=== PATIENT | female | born 1935 | race Hispanic/Latino ===

== ENCOUNTER 2017-08-14 18:49 | Emergency (ER) | payer OTHER ==
[2017-08-14] MEDS ORDERED: LIDOCAINE 1% MPF 5 ML VIAL ONE (19:24)
--- NOTE | 2017-08-14 20:15 | ER ---
Nurse's Notes [facility] Name: Rk Ram Age: 82 yrs Sex: Female : 1935 Arrival Date: 08/14/2017 Time: 18:52 Bed 15 Private MD: out of town, doctor Diagnosis: Laceration without foreign body of left index finger without damage to nail Presentation: 08/14 19:02 Presenting complaint: Patient states: Lacerated left index finger yesterday evening aj with kitchen knife while slicing ham. Transition of care: patient was not received from another setting of care. Onset of symptoms was August 13, 2017. Risk Assessment: Do you want to hurt yourself or someone else? Patient reports no desire to harm self or others. Initial Sepsis Screen: Does the patient meet any 2 criteria? No. Patient's initial sepsis screen is negative. Does the patient have a suspected source of infection? No. Patient's initial sepsis screen is negative. Care prior to arrival: None. 19:02 Method Of Arrival: Ambulatory aj 19:02 Acuity: BRENT 5 aj Triage Assessment: 19:06 General: Appears in no apparent distress. comfortable, Behavior is calm, cooperative, aj appropriate for age. Pain: Complains of pain in palmar aspect of middle phalanx of left index finger. Neuro: Level of Consciousness is awake, alert, obeys commands, Oriented to person, place, time, situation, Appropriate for age. Respiratory: Airway is patent Respiratory effort is even, unlabored, Respiratory pattern is regular, symmetrical. Derm: Skin is intact, is healthy with good turgor, Skin is pink, warm \T\ dry. normal. Injury Description: Laceration sustained to palmar aspect of middle phalanx of left index finger. Historical: - Allergies: 19:06 No Known Allergies; aj - Home Meds: 19:06 Humalog Sub-Q [Active]; Trujeo [Active]; Boniva 150 mg oral tab 1 tab once moly aj [Active]; Voltaren Oral [Active]; mirtazapine 15 mg Oral TbDL 1 tab once daily [Active]; amlodipine 5 mg tab 1 tab once daily [Active]; atorvastatin 40 mg oral tab 1 tab once daily [Active]; labetalol 200 mg Oral tab 1 tab 2 times per day [Active]; pantoprazole 40 mg oral TbEC 1 tab once daily [Active]; spironolactone 25 mg Oral tab 1 tab once daily [Active]; levothyroxine 50 mcg tab 1 tab once daily [Active]; - PMHx: 19:06 Hyperlipidemia; Diabetes - IDDM; Hypothyroidism; GERD; aj - Immunization history:: Adult Immunizations up to date, Last tetanus immunization: unknown. - Social history:: Smoking status: Patient/guardian denies using tobacco. - Ebola Screening: : Patient negative for fever greater than or equal to 101.5 degrees Fahrenheit, and additional compatible Ebola Virus Disease symptoms Patient denies exposure to infectious person Patient denies travel to an Ebola-affected area in the 21 days before illness onset No symptoms or risks identified at this time. Screenin:46 Abuse screen: Denies threats or abuse. Nutritional screening: No deficits noted. ea Tuberculosis screening: No symptoms or risk factors identified. Fall Risk None identified. Assessment: 19:43 General: Appears in no apparent distress. Behavior is calm, cooperative, appropriate ea for age. Pain: Complains of pain in palmar aspect of middle phalanx of left index finger Pain currently is 7 out of 10 on a pain scale. Quality of pain is described as aching. Neuro: Level of Consciousness is awake, alert, obeys commands, Oriented to person, place, time, situation. Cardiovascular: Patient's skin is warm and dry. Respiratory: Airway is patent Respiratory effort is even, unlabored, Respiratory pattern is regular, symmetrical. GI: No signs and/or symptoms were reported involving the gastrointestinal system. : No signs and/or symptoms were reported regarding the genitourinary system. EENT: No signs and/or symptoms were reported regarding the EENT system. Derm: Skin is pink, warm \T\ dry. Musculoskeletal: Circulation, motion, and sensation intact. Injury Description: Laceration sustained to palmar aspect of middle phalanx of left index finger is clean, was sustained 1 day ago. no active bleeding noted at this time. 20:54 Reassessment: Patient and/or family updated on plan of care and expected duration. Pain ea level reassessed. Patient is alert, oriented x 3, equal unlabored respirations, skin warm/dry/pink. Discharge instructions given to patient, verbalized the understanding of instruction. Vital Signs: 19:06 BP 149 / 50; Pulse 62; Resp 20; Temp 97.4; Pulse Ox 95% on R/A; Weight 58.97 kg; Height aj 5 ft. 1 in. (154.94 cm); 20:45 BP 138 / 50; Pulse 70; Resp 18; Temp 98(O); Pulse Ox 99% on R/A; Pain 0/10; ea 19:06 Body Mass Index 24.56 (58.97 kg, 154.94 cm) ED Course: 18:52 Patient arrived in ED. mr 18:52 out of town, doctor is Private Physician. mr 19:04 Triage completed. aj 19:06 Arm band placed on right wrist. Patient placed in an exam room. aj 19:09 Kb Santiago PA is PHCP. jr8 19:09 Son Vasquez MD is Attending Physician. jr8 19:43 Melina Gross RN is Primary Nurse. ea 19:45 Patient has correct armband on for positive identification. Bed in low position. Call ea light in reach. Side rails up X2. 20:53 No provider procedures requiring assistance completed. Patient did not have IV access ea during this emergency room visit. Administered Medications: 20:00 Drug: Lidocaine (1 %) 1 vials Volume: 5 ml; Route: Infiltration; ea 20:16 Drug: Tetanus-Diphtheria Toxoid Adult 0.5 ml {Research Fellow: [employer]. Exp: ea 06/19/2019. Lot #: [id number]. } Route: IM; Site: left deltoid; 20:54 Follow up: Response: No adverse reaction ea Outcome: 20:15 Discharge ordered by . [facility] 20:53 Discharged to home ambulatory, with family. ea 20:53 Condition: improved 20:53 Discharge instructions given to patient, Instructed on discharge instructions, follow up and referral plans. medication usage, Demonstrated understanding of instructions, follow-up care, medications, Prescriptions given X 1. 21:02 Patient left the ED. ea Signatures: Brittney Luna, Libby Topete RN mr Kb Santiago PA PA jrMelina Trujillo RN RN ea
--- NOTE | 2017-08-14 20:16 | EDPHYS ---
Physician Documentation [facility] Name: Rk Ram Age: 82 yrs Sex: Female : 1935 Arrival Date: 08/14/2017 Time: 18:52 Bed 15 Private MD: out of town, doctor ED Physician Son Vasquez HPI: 08/14 19:22 This 82 yrs old Female presents to ER via Ambulatory with complaints of Finger jr8 Laceration. 19:22 Onset: The symptoms/episode began/occurred acutely, yesterday. Associated signs and jr8 symptoms: The patient has no apparent associated signs or symptoms. The patient has not experienced similar symptoms in the past. The patient has not recently seen a physician. Was cutting with a knife and accidently lacerated finger yesterday . Historical: - Allergies: 19: No Known Allergies; aj - Home Meds: : Humalog Sub-Q [Active]; Trujeo [Active]; Boniva 150 mg oral tab 1 tab once moly aj [Active]; Voltaren Oral [Active]; mirtazapine 15 mg Oral TbDL 1 tab once daily [Active]; amlodipine 5 mg tab 1 tab once daily [Active]; atorvastatin 40 mg oral tab 1 tab once daily [Active]; labetalol 200 mg Oral tab 1 tab 2 times per day [Active]; pantoprazole 40 mg oral TbEC 1 tab once daily [Active]; spironolactone 25 mg Oral tab 1 tab once daily [Active]; levothyroxine 50 mcg tab 1 tab once daily [Active]; - PMHx: 19:06 Hyperlipidemia; Diabetes - IDDM; Hypothyroidism; GERD; aj - Immunization history:: Adult Immunizations up to date, Last tetanus immunization: unknown. - Social history:: Smoking status: Patient/guardian denies using tobacco. - Ebola Screening: : Patient negative for fever greater than or equal to 101.5 degrees Fahrenheit, and additional compatible Ebola Virus Disease symptoms Patient denies exposure to infectious person Patient denies travel to an Ebola-affected area in the 21 days before illness onset No symptoms or risks identified at this time. ROS: 19:22 Eyes: Negative for injury, pain, redness, and discharge, ENT: Negative for injury, jr8 pain, and discharge, Neck: Negative for injury, pain, and swelling, Cardiovascular: Negative for chest pain, palpitations, and edema, Respiratory: Negative for shortness of breath, cough, wheezing, and pleuritic chest pain, Abdomen/GI: Negative for abdominal pain, nausea, vomiting, diarrhea, and constipation, Back: Negative for injury and pain, MS/Extremity: Negative for injury and deformity, Neuro: Negative for headache, weakness, numbness, tingling, and seizure. 19:22 Skin: Positive for laceration(s), of the left hand. Exam: 19:22 Cardiovascular: Regular rate and rhythm with a normal S1 and S2. No gallops, murmurs, jr8 or rubs. Normal PMI, no JVD. No pulse deficits. Respiratory: Lungs have equal breath sounds bilaterally, clear to auscultation and percussion. No rales, rhonchi or wheezes noted. No increased work of breathing, no retractions or nasal flaring. MS/ Extremity: Pulses equal, no cyanosis. Neurovascular intact. Full, normal range of motion. Neuro: Awake and alert, GCS 15, oriented to person, place, time, and situation. Cranial nerves II-XII grossly intact. Motor strength 5/5 in all extremities. Sensory grossly intact. Cerebellar exam normal. Normal gait. 19:22 Skin: injury, laceration(s), the wound is approximately 2.5 cm(s), with a depth of .2 cm(s), of the palmar aspect of middle phalanx of left index finger, distal portion of lacerated tissue does not appear to be viable . Vital Signs: 19:06 BP 149 / 50; Pulse 62; Resp 20; Temp 97.4; Pulse Ox 95% on R/A; Weight 58.97 kg; Height aj 5 ft. 1 in. (154.94 cm); 20:45 BP 138 / 50; Pulse 70; Resp 18; Temp 98(O); Pulse Ox 99% on R/A; Pain 0/10; ea 19:06 Body Mass Index 24.56 (58.97 kg, 154.94 cm) aj Laceration: 20:14 Wound Repair of 2.5cm ( 1.0in ) subcutaneous laceration to palmar aspect of middle jr8 phalanx of left index finger. Irregularly shaped.. Skin/tissue flap noted.. Distal neuro/vascular/tendon intact. Anesthesia: Digital block administered with 3 mls of 1% lidocaine. Wound prep: Extensive cleansing with hibiclenz, Wound explored extensively. Skin closed with 5 5-0 Prolene using interrupted sutures and sterile technique. Patient tolerated well. MDM: 19:09 Patient medically screened. jr8 20:14 Data reviewed: vital signs, nurses notes, and as a result, I will discharge patient. jr8 Data interpreted: Pulse oximetry: on room air is 95 %. Interpretation: normal. Counseling: I had a detailed discussion with the patient and/or guardian regarding: the historical points, exam findings, and any diagnostic results supporting the discharge/admit diagnosis, the need for outpatient follow up, a family practitioner, to return to the emergency department if symptoms worsen or persist or if there are any questions or concerns that arise at home. 08/14 20:16 Order name: Dressing - Wound; Complete Time: 20:39 jr8 08/14 20:16 Order name: Gloves, Sterile; Complete Time: 20:22 jr8 08/14 20:16 Order name: Setup Suture Tray; Complete Time: 20:22 8 Administered Medications: 20:00 Drug: Lidocaine (1 %) 1 vials Volume: 5 ml; Route: Infiltration; ea 20:16 Drug: Tetanus-Diphtheria Toxoid Adult 0.5 ml {Residential Driver: [employer]. Exp: ea 06/19/2019. Lot #: [id number]. } Route: IM; Site: left deltoid; 20:54 Follow up: Response: No adverse reaction ea Disposition: 22:02 Co-signature as Attending Physician, Son Vasquez MD I agree with the assessment and kdr plan of care. Disposition: 08/14/17 20:15 Discharged to Home. Impression: Laceration without foreign body of left index finger without damage to nail. - Condition is Stable. - Discharge Instructions: Laceration Care, Adult. - Prescriptions for Keflex 500 mg Oral Capsule - take 1 capsule by ORAL route every 8 hours for 10 days; 30 capsule. - Medication Reconciliation Form, Thank You Letter, Antibiotic Education, Prescription Opioid Use form. - Follow up: Private Physician; When: 1 week; Reason: Wound Recheck, Recheck today's complaints, Continuance of care, Staple/Suture removal, Re-evaluation by your physician. - Problem is new. - Symptoms have improved. Signatures: Brittney Luna RN RN Son Newberry MD MD kdr Roszak, Josh, PA PA jr8 Melina Gross RN RN ea Corrections: (The following items were deleted from the chart) 21:02 20:15 08/14/2017 20:15 Discharged to Home. Impression: Laceration without foreign body ea of left index finger without damage to nail. Condition is Stable. Forms are Medication Reconciliation Form, Thank You Letter, Antibiotic Education, Prescription Opioid Use. Follow up: Private Physician; When: 1 week; Reason: Wound Recheck, Recheck today's complaints, Continuance of care, Staple/Suture removal, Re-evaluation by your physician. Problem is new. Symptoms have improved. jr8
[2017-08-14] MEDS ORDERED: TETANUS & DIPHTHERIA TOX,ADULT 0.5 ML VIAL ONE (20:35)
[2017-08-14 21:05] VITALS: BP 149/50; TEMP 97.4; O2SAT 95
== END 2017-08-14 21:02 | disposition home or self-care (01) ==
LOC: ER 18:49
PROC: 0JQK0ZZ Repair Left Hand Subcutaneous Tissue and Fascia, Open Approach (ICD-10-PCS; principal; 2017-08-14)
DX: S61.211A Laceration without foreign body of left index finger without damage to nail, initial encounter (principal); W26.0XXA Contact with knife, initial encounter; Y93.G3 Activity, cooking and baking; Y92.010 Kitchen of single-family (private) house as the place of occurrence of the external cause; E78.5 Hyperlipidemia, unspecified; E11.9 Type 2 diabetes mellitus without complications; Z79.4 Long term (current) use of insulin; E03.9 Hypothyroidism, unspecified; K21.9 Gastro-esophageal reflux disease without esophagitis
CPT/HCPCS: 90714; 99283

== ENCOUNTER 2017-11-27 09:55 | Emergency (ER) | payer OTHER ==
[2017-11-27] MEDS ORDERED: NA CHLORIDE 0.9% 1,000 ML ONE (10:39)
[2017-11-27 10:43] LABS: Absolute Lymphocytes (CBC) 0.5 K/uL (0.7-4.9); Absolute Monocytes 0.2 K/uL (0.1-1.3); Absolute Neutrophil 16.3 K/uL (1.8-8.0); Basophils % 0.3 % (0-1.3); Eosinophils % 0.1 % (0-4.4); Lymphocytes % 2.6 % (15.3-44.8); MCH 31.4 pg (27.0-35.0); MCV 91.7 fL (80-100); MPV 9.8 fL (7.6-11.3); Monocytes % 1.4 % (3.3-12.3); RBC Red Blood Cell Count 3.82 M/uL (3.86-4.86)
[2017-11-27 11:06] LABS: Albumin 3.4 g/dL (3.4-5.0); Bilirubin Direct 0.8 mg/dL (0-0.2); Bilirubin Total 1.4 mg/dL (0.2-1.0); Potassium 3.7 mmol/L (3.5-5.1)
[2017-11-27 11:12] LABS: Blood Morphology Comment NOT SEEN (NOT SEEN); Platelet Estimate ADEQ
--- NOTE | 2017-11-27 11:23 | RAD REPORT ---
EXAM DESCRIPTION: Ajith Lima (2 Views)11/27/2017 11:07 am CLINICAL HISTORY: Fever COMPARISON: None FINDINGS: The lungs appear clear of acute infiltrate. The heart is normal size IMPRESSION: No acute abnormalities displayed
[2017-11-27 12:20] LABS: Urine Blood 2+ (NEG); Urine Glucose NEGATIVE (NEG); Urine Protein 2+ (NEG); Urine Specific Gravity 1.015 (1.005-1.030); Urine pH 5.5 (5.0-7.0)
[2017-11-27] MEDS ORDERED: CEFTRIAXONE/SWI 1gm 1 GM/10 ML SYR ONE (12:23)
[2017-11-27 12:31] LABS: Urine Bacteria LOADED /HPF (<20); Urine Culture Reflex Order NOT NEEDED
[2017-11-27 12:32] LABS: Urine White Blood Cell Casts 0-5 /LPF (NONE SEEN)
--- NOTE | 2017-11-27 12:55 | ER ---
Nurse's Notes [facility] Name: Rk Ram Age: 82 yrs Sex: Female : 1935 Arrival Date: 11/27/2017 Time: 09:57 Bed 6 Private MD: Diagnosis: Urinary tract infection, site not specified Presentation: 11/27 10:09 Presenting complaint: Patient states: Fever, chills, body aches, and N/V since last ph night, denies cough, congestion, or diarhhea. Transition of care: patient was not received from another setting of care. Onset of symptoms was November 27, 2017. Risk Assessment: Do you want to hurt yourself or someone else? Patient reports no desire to harm self or others. Initial Sepsis Screen: Does the patient meet any 2 criteria? No. Patient's initial sepsis screen is negative. Does the patient have a suspected source of infection? No. Patient's initial sepsis screen is negative. Care prior to arrival: None. 10:09 Method Of Arrival: Ambulatory ph 10:09 Acuity: BRENT 3 ph Historical: - Allergies: 10:17 No Known Allergies; ph - Home Meds: 10:17 Humalog Sub-Q 5 units brkfst, 5 units lunch, 7 units dinner [Active]; Boniva Oral q 3 ph months [Active]; Voltaren Oral daily [Active]; mirtazapine 15 mg Oral TbDL 1 tab nightly [Active]; amlodipine 5 mg tab 1 tab once daily [Active]; atorvastatin 40 mg Oral tab 1 tab once daily [Active]; labetalol 200 mg Oral tab 1 tab daily [Active]; pantoprazole 40 mg Oral TbEC 1 tab once daily [Active]; spironolactone 25 mg Oral tab 1 tab once daily [Active]; levothyroxine 50 mcg tab 1 tab once daily [Active]; Trujeo [Active]; Lantus 100 unit/mL Sub-Q soln 30 unit nightly [Active]; - PMHx: 10:17 Diabetes - IDDM; GERD; Hyperlipidemia; Hypothyroidism; Osteoporosis; ph - PSHx: 10:17 Cholecystectomy; Appendectomy; Hysterectomy; ph - Immunization history:: Pneumococcal vaccine is up to date, Flu vaccine is up to date. - Social history:: Smoking status: Patient/guardian denies using tobacco. - Ebola Screening: : No symptoms or risks identified at this time. Screenin:47 Abuse screen: Denies threats or abuse. Denies injuries from another. Nutritional ph screening: No deficits noted. Tuberculosis screening: No symptoms or risk factors identified. Fall Risk None identified. Assessment: 10:42 General: Appears in no apparent distress. comfortable, well groomed, Behavior is calm, ph cooperative, appropriate for age, Reports chills for fever for 12-24 hours. Pain: Complains of pain in "all over". Neuro: Level of Consciousness is awake, alert, obeys commands, Oriented to person, place, time, situation, Reports weakness in " all over" Denies blurred vision dizziness, headache. Cardiovascular: Capillary refill < 3 seconds in bilateral fingers Patient's skin is warm and dry. Respiratory: Airway is patent Respiratory effort is even, unlabored, Respiratory pattern is regular, symmetrical, Denies cough, shortness of breath. GI: Reports nausea, vomiting, Patient currently denies abdominal pain, diarrhea. : Denies burning with urination, urinary frequency. Derm: Skin is intact, is healthy with good turgor, Skin is pink, warm \\T\\ dry. Musculoskeletal: Circulation, motion, and sensation intact. Range of motion: intact in all extremities. 11:44 Reassessment: Patient appears in no apparent distress at this time. Patient and/or ph family updated on plan of care and expected duration. Pain level reassessed. Patient is alert, oriented x 3, equal unlabored respirations, skin warm/dry/pink. Pt resting quietly, awaiting results of urine test, at bedside. 13:13 Reassessment: Patient appears in no apparent distress at this time. Patient and/or tw2 family updated on plan of care and expected duration. Pain level reassessed. Patient is alert, oriented x 3, equal unlabored respirations, skin warm/dry/pink. Vital Signs: 10:11 BP 107 / 46; Pulse 91; Resp 18; Temp 98.9; Pulse Ox 94% on R/A; Weight 58.97 kg; Height ph 5 ft. 1 in. (154.94 cm); Pain 7/10; 11:26 BP 129 / 52; Pulse 90; Resp 17; Pulse Ox 96% on R/A; tw2 11:46 BP 127 / 54; Pulse 87; Resp 18; Pulse Ox 95% on R/A; ph 13:05 BP 121 / 61; Pulse 89; Resp 17; Pulse Ox 96% on R/A; tw2 10:11 Body Mass Index 24.56 (58.97 kg, 154.94 cm) ph ED Course: 09:57 Patient arrived in ED. tw3 10:06 Jaden Penny, VERONICA is PHCP. pm1 10:06 Son Vasquez MD is Attending Physician. pm1 10:09 Rossy Santana, SANJUANA is Primary Nurse. ph 10:11 Triage completed. ph 10:17 Arm band placed on. ph 10:20 Initial lab(s) drawn, by me, sent to lab. Inserted saline lock: 22 gauge in right ph forearm, using aseptic technique. Blood collected. 10:47 Patient has correct armband on for positive identification. Bed in low position. Call ph light in reach. Side rails up X 1. Pulse ox on. NIBP on. Warm blanket given. 10:55 X-ray completed. Patient tolerated procedure well. Patient moved to radiology via jb2 wheelchair. 10:56 Chest Pa And Lat (2 Views) XRAY In Process Unspecified. EDMS 11:52 Straight cath inserted, using sterile technique, 16 Fr. Returned clive urine. Patient dh3 tolerated well. 13:13 No provider procedures requiring assistance completed. IV discontinued, intact, tw2 bleeding controlled, No redness/swelling at site. Pressure dressing applied. Administered Medications: 10:37 Drug: NS 0.9% 1000 ml Route: IV; Rate: 1000 ml; Site: right forearm; ph 12:21 Follow up: Response: No adverse reaction; IV Status: Completed infusion ph 12:21 Drug: Rocephin 1 grams Route: IV; Rate: calculated rate; Site: right forearm; ph 12:21 Follow up: Response: No adverse reaction; IV Status: Completed infusion ph Outcome: 12:55 Discharge ordered by . pm1 13:13 Discharged to home via wheelchair, with family. tw2 13:13 Condition: stable 13:13 Discharge instructions given to patient, family, Instructed on discharge instructions, follow up and referral plans. medication usage, Demonstrated understanding of instructions, follow-up care, medications, Prescriptions given X 1. 13:14 Patient left the ED. tw2 Addendum: 11/30/2017 08:58 Addendum: Culture Results: Bacteria is resistant to, has intermediate sensitivity, or i w is not tested against prescribed antibiotics. Report given to AALIYAH for further evaluation and then to gold frame assembler for follow up with patient. Phone call Attempt #1 pt son states pt symptoms have improved, has f/u with PCP this week, pt has no urinary symptoms. Signatures: Dispatcher [employer] EDMS Julio Avila jb2 Cherelle Lyon RN RN Rossy Santana RN RN Jaden Penny, VERONICA [employer] pm1 Kelsey Kendall RN RN tw2 Kranthi, Angy tw3 Celine Alberto 3
--- NOTE | 2017-11-27 12:55 | EDPHYS ---
Physician Documentation [facility] Name: Rk Ram Age: 82 yrs Sex: Female : 1935 Arrival Date: 11/27/2017 Time: 09:57 Bed 6 Private MD: ED Physician Son Vasquez HPI: 11/27 11:00 This 82 yrs old Female presents to ER via Ambulatory with complaints of Fever. pm1 11:00 The patient reports fever, not measured (subjective). Onset: The symptoms/episode pm1 began/occurred 2 day(s) ago. Modifying factors: there are no obvious modifying factors. Associated signs and symptoms: Pertinent positives: Urinary frequency, Pertinent negatives: abdominal pain, backache, chest pain, cough, diarrhea, headache, nausea, runny nose, skin rash, shortness of breath, sore throat, vomiting. Severity of symptoms: in the emergency department the symptoms have improved. The patient has not experienced similar symptoms in the past. The patient has not recently seen a physician, out of town. Historical: - Allergies: 10:17 No Known Allergies; ph - Home Meds: 10:17 Humalog Sub-Q 5 units brkfst, 5 units lunch, 7 units dinner [Active]; Boniva Oral q 3 ph months [Active]; Voltaren Oral daily [Active]; mirtazapine 15 mg Oral TbDL 1 tab nightly [Active]; amlodipine 5 mg tab 1 tab once daily [Active]; atorvastatin 40 mg Oral tab 1 tab once daily [Active]; labetalol 200 mg Oral tab 1 tab daily [Active]; pantoprazole 40 mg Oral TbEC 1 tab once daily [Active]; spironolactone 25 mg Oral tab 1 tab once daily [Active]; levothyroxine 50 mcg tab 1 tab once daily [Active]; Trujeo [Active]; Lantus 100 unit/mL Sub-Q soln 30 unit nightly [Active]; - PMHx: 10:17 Diabetes - IDDM; GERD; Hyperlipidemia; Hypothyroidism; Osteoporosis; ph - PSHx: 10:17 Cholecystectomy; Appendectomy; Hysterectomy; ph - Immunization history:: Pneumococcal vaccine is up to date, Flu vaccine is up to date. - Social history:: Smoking status: Patient/guardian denies using tobacco. - Ebola Screening: : No symptoms or risks identified at this time. ROS: 11:00 Eyes: Negative for injury, pain, redness, and discharge, ENT: Negative for injury, pm1 pain, and discharge, Neck: Negative for injury, pain, and swelling, Cardiovascular: Negative for chest pain, palpitations, and edema, Respiratory: Negative for shortness of breath, cough, wheezing, and pleuritic chest pain, Abdomen/GI: Negative for abdominal pain, nausea, vomiting, diarrhea, and constipation, Back: Negative for injury and pain. 11:00 MS/Extremity: Negative for injury and deformity, Skin: Negative for injury, rash, and discoloration, Neuro: Negative for headache, weakness, numbness, tingling, and seizure. 11:00 Constitutional: Positive for body aches, Subjective fever. 11:00 : Positive for urinary frequency, Negative for hematuria, burning with urination. Exam: 11:00 Constitutional: This is a well developed, well nourished patient who is awake, alert, pm1 and in no acute distress. Head/Face: Normocephalic, atraumatic. Eyes: Pupils equal round and reactive to light, extra-ocular motions intact. Lids and lashes normal. Conjunctiva and sclera are non-icteric and not injected. Cornea within normal limits. Periorbital areas with no swelling, redness, or edema. ENT: Nares patent. No nasal discharge, no septal abnormalities noted. Tympanic membranes are normal and external auditory canals are clear. Oropharynx with no redness, swelling, or masses, exudates, or evidence of obstruction, uvula midline. Mucous membranes moist. Neck: Trachea midline, no thyromegaly or masses palpated, and no cervical lymphadenopathy. Supple, full range of motion without nuchal rigidity, or vertebral point tenderness. No Meningismus. Chest/axilla: Normal chest wall appearance and motion. Nontender with no deformity. No lesions are appreciated. Cardiovascular: Regular rate and rhythm with a normal S1 and S2. No gallops, murmurs, or rubs. Normal PMI, no JVD. No pulse deficits. Respiratory: Lungs have equal breath sounds bilaterally, clear to auscultation and percussion. No rales, rhonchi or wheezes noted. No increased work of breathing, no retractions or nasal flaring. Abdomen/GI: Soft, non-tender, with normal bowel sounds. No distension or tympany. No guarding or rebound. No evidence of tenderness throughout. Back: No spinal tenderness. No costovertebral tenderness. Full range of motion. Skin: Warm, dry with normal turgor. Normal color with no rashes, no lesions, and no evidence of cellulitis. MS/ Extremity: Pulses equal, no cyanosis. Neurovascular intact. Full, normal range of motion. 11:00 Neuro: Orientation: is normal, Motor: is normal, moves all fours. Vital Signs: 10:11 BP 107 / 46; Pulse 91; Resp 18; Temp 98.9; Pulse Ox 94% on R/A; Weight 58.97 kg; Height ph 5 ft. 1 in. (154.94 cm); Pain 7/10; 11:26 BP 129 / 52; Pulse 90; Resp 17; Pulse Ox 96% on R/A; tw2 11:46 BP 127 / 54; Pulse 87; Resp 18; Pulse Ox 95% on R/A; ph 13:05 BP 121 / 61; Pulse 89; Resp 17; Pulse Ox 96% on R/A; tw2 10:11 Body Mass Index 24.56 (58.97 kg, 154.94 cm) ph MDM: 10:07 Patient medically screened. pm1 10:14 Data reviewed: vital signs. pm1 12:54 Data interpreted: Pulse oximetry: on room air is 95 %. Interpretation: normal. pm1 Counseling: I had a detailed discussion with the patient and/or guardian regarding: the historical points, exam findings, and any diagnostic results supporting the discharge/admit diagnosis, lab results, the need for outpatient follow up, to return to the emergency department if symptoms worsen or persist or if there are any questions or concerns that arise at home. 12:54 ED course: Offered admission to patient. Patient wants to home because she feels well. pm1 Daughter and present in room and support patient's decision. Patient given fluids and Rocephin in the ER. Educated patient on return precautions and will discharge the patient home with antibiotics. Patient without diarrhea today, but has had been dealing with diarrhea in the prior to onset of symptoms. Will discharge the patient home with Bactrim. Did not use Augmentin due to risk for diarrhea and Cipro due to age. 11/27 10:18 Order name: Flu; Complete Time: 11:18 pm1 11/27 10:18 Order name: Strep; Complete Time: 11:18 pm1 11/27 10:18 Order name: CBC with Diff; Complete Time: 11:18 pm1 11/27 10:18 Order name: BMP; Complete Time: 11:18 pm1 11/27 10:18 Order name: Hepatic Function; Complete Time: 11:18 pm1 11/27 10:18 Order name: Urine Microscopic Only; Complete Time: 12:56 pm1 11/27 10:18 Order name: Urine Dipstick-Ancillary (obtain specimen); Complete Time: 11:58 pm1 11/27 10:18 Order name: Chest Pa And Lat (2 Views) XRAY; Complete Time: 11:27 pm1 11/27 10:53 Order name: Manual Differential; Complete Time: 11:18 EDMS 11/27 11:03 Order name: Throat Culture EDMS 11/27 11:51 Order name: Urine Culture pm1 11/27 11:56 Order name: Urine Dipstick--Ancillary (enter results); Complete Time: 12:31 dh3 11/27 10:18 Order name: IV Saline Lock; Complete Time: 10:37 pm1 Administered Medications: 10:37 Drug: NS 0.9% 1000 ml Route: IV; Rate: 1000 ml; Site: right forearm; ph 12:21 Follow up: Response: No adverse reaction; IV Status: Completed infusion ph 12:21 Drug: Rocephin 1 grams Route: IV; Rate: calculated rate; Site: right forearm; ph 12:21 Follow up: Response: No adverse reaction; IV Status: Completed infusion ph Disposition: 14:17 Co-signature as Attending Physician, Son Vasquez MD I agree with the assessment and kdr plan of care. Disposition: 11/27/17 12:55 Discharged to Home. Impression: Urinary tract infection, site not specified. - Condition is Stable. - Discharge Instructions: Urinary Tract Infection, Adult. - Prescriptions for Bactrim DS 800- 160 mg Oral Tablet - take 1 tablet by ORAL route every 12 hours for 10 days; 20 tablet. - Medication Reconciliation Form, Thank You Letter, Antibiotic Education form. - Follow up: Emergency Department; When: As needed; Reason: Worsening of condition. Follow up: Private Physician; When: 2 - 3 days; Reason: Recheck today's complaints, Continuance of care, Re-evaluation by your physician. - Problem is new. - Symptoms have improved. Signatures: Dispatcher [employer] EDSon Vazquez MD MD kdr Hall, Patricia, RN RN ph Jaden Penny, COMPUTER INSTALLER COMPUTER INSTALLER pm1 Kelsey Kendall RN RN tw2 Corrections: (The following items were deleted from the chart) 13:14 12:55 11/27/2017 12:55 Discharged to Home. Impression: Urinary tract infection, site tw2 not specified. Condition is Stable. Forms are Medication Reconciliation Form, Thank You Letter, Antibiotic Education, Prescription Opioid Use. Follow up: Emergency Department; When: As needed; Reason: Worsening of condition. Follow up: Private Physician; When: 2 - 3 days; Reason: Recheck today's complaints, Continuance of care, Re-evaluation by your physician. Problem is new. Symptoms have improved. pm1
[2017-11-27 13:18] VITALS: TEMP 98.9
[2017-11-27 13:22] VITALS: BP 121/61; O2SAT 96
== END 2017-11-27 13:14 | disposition home or self-care (01) ==
LOC: ER 09:55
DX: N39.0 Urinary tract infection, site not specified (principal); E11.9 Type 2 diabetes mellitus without complications; E03.9 Hypothyroidism, unspecified; M81.0 Age-related osteoporosis without current pathological fracture
CPT/HCPCS: 36415; 51702; 71046; 80048; 80076; 85025; 87070; 87077; 87081; 87086; 87088; 87186; 87804 ×2; 96361; 96374; 99284; J0696; J7030; 81003; 81015

== ENCOUNTER 2017-12-04 18:17 | Emergency (ER) | payer OTHER ==
[2017-12-04] MEDS ORDERED: MORPHINE 4 MG/ML SYR ONE ×2 (18:52→19:14)
[2017-12-04] MEDS ORDERED: ONDANSETRON 4 MG/2 ML VIAL ONE (18:52)
--- NOTE | 2017-12-04 19:35 | RAD REPORT ---
EXAM DESCRIPTION: RAD - Ankle Right 3 View - 12/04/2017 7:27 pm CLINICAL HISTORY: Right ankle pain status post fall FINDINGS: Small bony density adjacent to the medial malleolus probably is chronic. No acute fracture is seen No dislocation is noted. Soft tissue swelling is seen
--- NOTE | 2017-12-04 19:37 | RAD REPORT ---
EXAM DESCRIPTION: RAD - Knee Left 3 View - 12/04/2017 7:27 pm CLINICAL HISTORY: Left knee pain status post injury FINDINGS: Comminuted fracture involves the mid patella. Fracture fragments are by 15 aracelis meters. No dislocation is seen
--- NOTE | 2017-12-04 20:33 | ER ---
Nurse's Notes [facility] Name: Rk Ram Age: 82 yrs Sex: Female : 1935 Arrival Date: 12/04/2017 Time: 18:20 Bed 13 Private MD: out of town, doctor Diagnosis: Fracture of patella;Sprain of ankle Presentation: 12/04 18:27 Presenting complaint: Patient states: Fell onto left knee after missing step on porch aj today at 1330. Swelling and abrasion noted to left knee. Unable to bear weight. Care prior to arrival: None. Mechanism of Injury: Fall from standing position. Trauma event details: Injury occurred in the [facility], Injury occurred: at home. Injury occurred: December 04, 2017 Injury occurred at: 13:30. 18:27 Acuity: BRENT 3 aj 18:27 Method Of Arrival: Wheelchair aj 19:00 Transition of care: patient was not received from another setting of care. Onset of jb4 symptoms was December 04, 2017. Risk Assessment: Do you want to hurt yourself or someone else? Patient reports no desire to harm self or others. Initial Sepsis Screen: Does the patient meet any 2 criteria? No. Patient's initial sepsis screen is negative. Does the patient have a suspected source of infection? No. Patient's initial sepsis screen is negative. Trauma Activation: Not Applicable Physician: ED Physician; Name: ; Notified At: ; Arrived At: Physician: General Surgeon; Name: ; Notified At: ; Arrived At: Physician: Radiology; Name: ; Notified At: ; Arrived At: Physician: Respiratory; Name: ; Notified At: ; Arrived At: Physician: Lab; Name: ; Notified At: ; Arrived At: Historical: - Allergies: 18:30 No Known Allergies; aj - Home Meds: 18:30 amlodipine 5 mg tab 1 tab once daily [Active]; atorvastatin 40 mg Oral tab 1 tab once aj daily [Active]; Boniva Oral q 3 months [Active]; Humalog Sub-Q 5 units brkfst, 5 units lunch, 7 units dinner [Active]; labetalol 200 mg Oral tab 1 tab daily [Active]; Lantus 100 unit/mL Sub-Q soln 30 unit nightly [Active]; levothyroxine 50 mcg tab 1 tab once daily [Active]; pantoprazole 40 mg Oral TbEC 1 tab once daily [Active]; mirtazapine 15 mg Oral TbDL 1 tab nightly [Active]; spironolactone 25 mg Oral tab 1 tab once daily [Active]; Trujeo [Active]; Voltaren Oral daily [Active]; - PMHx: 18:30 Diabetes - IDDM; GERD; Hyperlipidemia; Hypothyroidism; Osteoporosis; aj - PSHx: 18:30 Cholecystectomy; Appendectomy; Hysterectomy; aj - Immunization history: Last tetanus immunization: - up to date. - Social history:: Smoking status: Patient/guardian denies using tobacco. - Ebola Screening: : Patient negative for fever greater than or equal to 101.5 degrees Fahrenheit, and additional compatible Ebola Virus Disease symptoms Patient denies exposure to infectious person Patient denies travel to an Ebola-affected area in the 21 days before illness onset No symptoms or risks identified at this time. Screenin:50 Abuse screen: Denies threats or abuse. Nutritional screening: No deficits noted. em Tuberculosis screening: No symptoms or risk factors identified. Fall Risk Fall in past 12 months (25 points). Total Arciniega Fall Scale indicates Low Risk Score (25-44 pts). Side Rails Up X 2. Primary Survey: 18:27 Breathing/Chest: Respiratory pattern: regular, Respiratory effort: spontaneous, aj unlabored, Breath sounds: clear, bilaterally. Chest inspection: symmetrical rise and fall of the chest. Circulation: Skin color: pink, Skin temperature: warm, dry. Disability Alert. Assessment: 18:27 General: Appears in no apparent distress. comfortable, Behavior is calm, cooperative, aj appropriate for age. Pain: Complains of pain in left knee. Neuro: Level of Consciousness is awake, alert, obeys commands, Oriented to person, place, time, situation, Appropriate for age. Respiratory: Airway is patent Respiratory effort is even, unlabored, Respiratory pattern is regular, symmetrical. Derm: Skin is intact, is healthy with good turgor, Skin is pink, warm \T\ dry. normal. Musculoskeletal: Reports pain in left knee. Injury Description: Abrasion sustained to left knee. 19:00 Reassessment: Patient appears in no apparent distress at this time. Patient and/or jb4 family updated on plan of care and expected duration. Pain level reassessed. Patient is alert, oriented x 3, equal unlabored respirations, skin warm/dry/pink. 19:00 General: Appears in no apparent distress. uncomfortable, Behavior is calm, cooperative. jb4 Cardiovascular: Patient's skin is warm and dry. Respiratory: Airway is patent Respiratory effort is even, unlabored, Respiratory pattern is regular, symmetrical. 20:15 Reassessment: Patient appears in no apparent distress at this time. Patient and/or jb4 family updated on plan of care and expected duration. Pain level reassessed. Patient is alert, oriented x 3, equal unlabored respirations, skin warm/dry/pink. 21:19 Reassessment: Patient appears in no apparent distress at this time. Patient and/or jb4 family updated on plan of care and expected duration. Pain level reassessed. Patient is alert, oriented x 3, equal unlabored respirations, skin warm/dry/pink. Discussed D/c, F/u with pt, denies questions or concerns. Vital Signs: 18:27 BP 172 / 61; Pulse 62; Resp 17; Temp 97.2; Pulse Ox 99% on R/A; Weight 58.97 kg; Height aj 5 ft. 1 in. (154.94 cm); 19:00 BP 150 / 74; Pulse 55; Resp 18; Pulse Ox 95% on R/A; jb4 20:00 BP 162 / 60; Pulse 58; Resp 18; Pulse Ox 97% ; jb4 21:19 BP 135 / 54; Pulse 64; Resp 18; Pulse Ox 96% on R/A; jb4 18:27 Body Mass Index 24.56 (58.97 kg, 154.94 cm) [place] Coma Score: 18:27 Eye Response: spontaneous(4). Verbal Response: oriented(5). Motor Response: obeys aj commands(6). Total: 15. Trauma Score (Adult): 18:27 Eye Response: spontaneous(1); Verbal Response: oriented(1); Motor Response: obeys aj commands(2); Systolic BP: > 89 mm Hg(4); Respiratory Rate: 10 to 29 per min(4); [place] Score: 15; Trauma Score: 12 ED Course: 18:20 Patient arrived in ED. mr 18:20 out of town, doctor is Private Physician. mr 18:28 Triage completed. aj 18:30 Sanya Hightower LVN is Primary Nurse. em 18:30 Arm band placed on right wrist. Patient placed in an exam room. aj 18:40 Saul Reyes PA is PHCP. jmm 18:40 Angel Morrison MD is Attending Physician. jmm 18:47 Missed attempt(s): 20 gauge in right antecubital area. Bleeding controlled, band aid dh3 applied, catheter tip intact. 18:50 Patient has correct armband on for positive identification. Bed in low position. Call em light in reach. Side rails up X2. Adult w/ patient. 18:50 Inserted saline lock: 22 gauge in left wrist, using aseptic technique. dh3 18:50 Patient maintains SpO2 saturation greater than 95% on room air. em 19:26 X-ray completed. Portable x-ray completed in exam room. Patient tolerated procedure mh1 well. 19:27 Knee Left 3 View XRAY In Process Unspecified. EDMS 19:27 Ankle Right 3 View XRAY In Process Unspecified. EDMS 20:15 Primary Nurse role handed off by Sanya Hightower LVN jb4 20:15 Giovanny Calvin, SANJUANA is Primary Nurse. jb4 20:32 Davi Jones MD is Referral Physician. jmm 21:19 No provider procedures requiring assistance completed. IV discontinued, intact, jb4 bleeding controlled. Knee immobilizer applied on left knee. Administered Medications: 18:56 Drug: morphine 2 mg Route: IVP; Site: left wrist; ss 20:29 Follow up: Response: No adverse reaction; Pain is decreased jb4 18:56 Drug: Zofran 4 mg Route: IVP; Site: left wrist; ss 20:29 Follow up: Response: No adverse reaction; Nausea is decreased jb4 19:13 Drug: morphine 2 mg Route: IVP; Site: left hand; jb4 20:29 Follow up: Response: No adverse reaction; Pain is decreased jb4 Outcome: 20:32 Discharge ordered by . jmm 21:19 Discharged to home via wheelchair. jb4 21:19 Condition: stable 21:19 Discharge instructions given to patient, family, Instructed on discharge instructions, follow up and referral plans. medication usage, Demonstrated understanding of instructions, follow-up care, medications, Prescriptions given X 1, Pt refused Tylenol #3, was given Tramadol instead. 21:22 Patient left the ED. jb4 Signatures: Dispatcher [employer] Brittney Delarosa, RN RN Saul Roberts PA PA jmm Rivera, Kellie mr MikieEvelin 1 Sanya Hightower, Johana Prince LVN, RN RN Giovanny Calvin RN RN jb4 Celine Alberto [facility]
--- NOTE | 2017-12-04 20:33 | EDPHYS ---
Physician Documentation [facility] Name: Rk Ram Age: 82 yrs Sex: Female : 1935 Arrival Date: 12/04/2017 Time: 18:20 Bed 13 Private MD: out of town, doctor ED Physician Angel Morrison HPI: 12/04 18:43 This 82 yrs old Female presents to ER via Wheelchair with complaints of Fall jmm Injury. 18:43 Details of fall: The patient fell from an upright position, while walking. Onset: The jmm symptoms/episode began/occurred acutely, today. Associated injuries: The patient sustained left knee, right ankle. The patient has not experienced similar symptoms in the past. This is an 82 year old female with a history of DM that presents to the ED with left knee pain and swelling and tripping and falling directly onto cement. Also complains of mild pain to the right ankle. Denies other injury. . Historical: - Allergies: 18:30 No Known Allergies; aj - Home Meds: 18:30 amlodipine 5 mg tab 1 tab once daily [Active]; atorvastatin 40 mg Oral tab 1 tab once aj daily [Active]; Boniva Oral q 3 months [Active]; Humalog Sub-Q 5 units brkfst, 5 units lunch, 7 units dinner [Active]; labetalol 200 mg Oral tab 1 tab daily [Active]; Lantus 100 unit/mL Sub-Q soln 30 unit nightly [Active]; levothyroxine 50 mcg tab 1 tab once daily [Active]; pantoprazole 40 mg Oral TbEC 1 tab once daily [Active]; mirtazapine 15 mg Oral TbDL 1 tab nightly [Active]; spironolactone 25 mg Oral tab 1 tab once daily [Active]; Trujeo [Active]; Voltaren Oral daily [Active]; - PMHx: 18:30 Diabetes - IDDM; GERD; Hyperlipidemia; Hypothyroidism; Osteoporosis; aj - PSHx: 18:30 Cholecystectomy; Appendectomy; Hysterectomy; aj - Immunization history: Last tetanus immunization: - up to date. - Social history:: Smoking status: Patient/guardian denies using tobacco. - Ebola Screening: : Patient negative for fever greater than or equal to 101.5 degrees Fahrenheit, and additional compatible Ebola Virus Disease symptoms Patient denies exposure to infectious person Patient denies travel to an Ebola-affected area in the 21 days before illness onset No symptoms or risks identified at this time. ROS: 18:43 Constitutional: Negative for fever, chills, and weight loss, Cardiovascular: Negative jmm for chest pain, palpitations, and edema, Respiratory: Negative for shortness of breath, cough, wheezing, and pleuritic chest pain. 18:43 MS/extremity: Positive for injury or acute deformity, pain. 18:43 Skin: Positive for abrasion(s). 18:43 All other systems are negative. Exam: 18:43 Head/Face: atraumatic. Eyes: EOMI, no conjunctival erythema appreciated ENT: Moist jmm Mucus Membranes Neck: Trachea midline, Supple Chest/axilla: Normal chest wall appearance and motion. Cardiovascular: Regular rate and rhythm. No edema appreciated Respiratory: Normal respirations, no respiratory distress appreciated 18:43 Constitutional: The patient appears in no acute distress, alert, awake. 18:43 Musculoskeletal/extremity: swelling with anterior pain on palpatino noted to the left knee, painful extension appreciated, full dorsalis pedis pulse appreciated, NVI. Mild swelling noted to the right ankle. No bony tenderness apprecaited full dorsalis pedis pulse, NVI. 18:43 Skin: abrasion noted to the left anterior knee. 18:43 Neuro: Orientation: is normal, Mentation: is normal, Memory: is normal. 18:43 Psych: Behavior/mood is pleasant, cooperative. Vital Signs: 18:27 BP 172 / 61; Pulse 62; Resp 17; Temp 97.2; Pulse Ox 99% on R/A; Weight 58.97 kg; Height aj 5 ft. 1 in. (154.94 cm); 19:00 BP 150 / 74; Pulse 55; Resp 18; Pulse Ox 95% on R/A; jb4 20:00 BP 162 / 60; Pulse 58; Resp 18; Pulse Ox 97% ; jb4 21:19 BP 135 / 54; Pulse 64; Resp 18; Pulse Ox 96% on R/A; jb4 18:27 Body Mass Index 24.56 (58.97 kg, 154.94 cm) [place] Coma Score: 18:27 Eye Response: spontaneous(4). Verbal Response: oriented(5). Motor Response: obeys aj commands(6). Total: 15. Trauma Score (Adult): 18:27 Eye Response: spontaneous(1); Verbal Response: oriented(1); Motor Response: obeys aj commands(2); Systolic BP: > 89 mm Hg(4); Respiratory Rate: 10 to 29 per min(4); Melanie Score: 15; Trauma Score: 12 Procedures: 18:43 Splinting: Splint applied to left knee using knee immobilizer, applied by nurse. [facility] Examined by me, post splint application: neurovascular intact, 2+ distal pulses palpable, brisk capillary refill noted, Patient tolerated well. MDM: 19:05 Patient medically screened. [facility] 19:58 Data reviewed: vital signs, nurses notes, radiologic studies. Data interpreted: Pulse [facility] oximetry: on room air is 97 %. Interpretation: normal. Counseling: I had a detailed discussion with the patient and/or guardian regarding: the historical points, exam findings, and any diagnostic results supporting the discharge/admit diagnosis, radiology results, the need for outpatient follow up, to return to the emergency department if symptoms worsen or persist or if there are any questions or concerns that arise at home. ED course: I discussed the patient with Dr. Jones whom will follow up with the patient in clinic. Patient's pain is relieved in the ED. Patient given strict return precautions. patient udnerstood and agrees with the plan of care. . 12/04 18:43 Order name: Knee Left 3 View XRAY; Complete Time: 19:44 jm 12/04 19:05 Order name: Ankle Right 3 View XRAY; Complete Time: 19:[address] [facility] 12/04 18:43 Order name: Saline Lock; Complete Time: 18:[address] [facility] 12/04 19:58 Order name: Knee Immobilizer; Complete Time: 20:07 jm Administered Medications: 18:56 Drug: morphine 2 mg Route: IVP; Site: left wrist; ss 20:29 Follow up: Response: No adverse reaction; Pain is decreased jb4 18:56 Drug: Zofran 4 mg Route: IVP; Site: left wrist; ss 20:29 Follow up: Response: No adverse reaction; Nausea is decreased jb4 19:13 Drug: morphine 2 mg Route: IVP; Site: left hand; jb4 20:29 Follow up: Response: No adverse reaction; Pain is decreased jb4 Disposition: 12/04/17 20:32 Discharged to Home. Impression: Fracture of patella, Sprain of ankle. - Condition is Stable. - Discharge Instructions: Ankle Sprain, Patellar Fracture, Adult. - Prescriptions for Tylenol- Codeine #3 300-30 mg Oral Tablet - take 1 tablet by ORAL route every 6 hours As needed; 12 tablet. Tramadol 50 mg Oral Tablet - take 1 tablet by ORAL route every 8 hours as needed; 12 tablet. - Medication Reconciliation Form, Thank You Letter, Antibiotic Education, Prescription Opioid Use form. - Follow up: Davi Jones MD; When: 2 - 3 days; Reason: Recheck today's complaints, Continuance of care, Re-evaluation by your physician. Addendum: 12/10/2017 07:46 Co-signature as Attending Physician, Angel Morrison MD. r n Signatures: Dispatcher [employer] EDMS Brittney Luna RN RN Saul Roberts PA PA [facility] Angel Morrison MD MD rn Smirch, Shelby, RN RN Giovanny Calvin RN RN jb4 Corrections: (The following items were deleted from the chart) 12/04 21:22 20:32 12/04/2017 20:32 Discharged to Home. Impression: Fracture of patella; Sprain of jb4 ankle. Condition is Stable. Forms are Medication Reconciliation Form, Thank You Letter, Antibiotic Education, Prescription Opioid Use. Follow up: Davi Jones; When: 2 - 3 days; Reason: Recheck today's complaints, Continuance of care, Re-evaluation by your physician. kelin
[2017-12-04 21:27] VITALS: TEMP 97.2
[2017-12-04 21:30] VITALS: BP 135/54; O2SAT 96
== END 2017-12-04 21:22 | disposition home or self-care (01) ==
LOC: ER 18:17
DX: S82.002A Unspecified fracture of left patella, initial encounter for closed fracture (principal); S93.401A Sprain of unspecified ligament of right ankle, initial encounter; W01.0XXA Fall on same level from slipping, tripping and stumbling without subsequent striking against object, initial encounter; Y93.01 Activity, walking, marching and hiking; Y92.89 Other specified places as the place of occurrence of the external cause; Z79.4 Long term (current) use of insulin; E11.9 Type 2 diabetes mellitus without complications; E78.5 Hyperlipidemia, unspecified; E03.9 Hypothyroidism, unspecified
CPT/HCPCS: 73562; 73610; 99284; J2405

== ENCOUNTER 2018-02-05 08:48 | Inpatient (IN) | payer OTHER ==
[2018-02-05] MEDS ORDERED: CEFTRIAXONE/SWI 1gm 1 GM/10 ML SYR ONE ×2 (10:05→12:47)
[2018-02-05] MEDS ORDERED: ONDANSETRON 4 MG/2 ML VIAL ONE (10:05)
[2018-02-05] MEDS ORDERED: FAMOTIDINE 20 MG/2 ML VIAL IV ONE (10:05)
[2018-02-05] MEDS ORDERED: NA CHLORIDE 0.9% 1,000 ML ONE (10:05)
--- NOTE | 2018-02-05 10:09 | RAD REPORT ---
EXAM DESCRIPTION: Ajith Single View02/05/2018 10:03 am CLINICAL HISTORY: cough COMPARISON: November 2017 FINDINGS: The lungs appear clear of acute infiltrate. The heart is normal size IMPRESSION: No acute abnormalities displayed
[2018-02-05 10:29] LABS: Absolute Lymphocytes (CBC) 0.4 K/uL (0.7-4.9); Absolute Monocytes 1.3 K/uL (0.1-1.3); Absolute Neutrophil 24.1 K/uL (1.8-8.0); Basophils % 0.2 % (0-1.3); Eosinophils % 0.1 % (0-4.4); Hematocrit 34.4 % (36.0-45.0); Lymphocytes % 1.7 % (15.3-44.8); MPV 8.2 fL (7.6-11.3); Monocytes % 5.1 % (3.3-12.3); RBC Red Blood Cell Count 3.83 M/uL (3.86-4.86)
[2018-02-05 10:31] LABS: Protime INR 1.31
[2018-02-05 10:47] LABS: ALT/SGPT 34 U/L (12-78); AST/SGOT 39 U/L (15-37); Albumin 3.1 g/dL (3.4-5.0); Alkaline Phosphatase 111 U/L (45-117); BUN Blood Urea Nitrogen 19 mg/dL (7-18); Bicarbonate 24 mmol/L (21-32); Bilirubin Direct 0.5 mg/dL (0-0.2); Bilirubin Total 0.9 mg/dL (0.2-1.0); Glucose Level 131 mg/dL (74-106); Lipase 93 U/L (73-393); NT PRO-BNP 848 pg/mL (<450); Potassium 3.9 mmol/L (3.5-5.1); Protein, Total 6.9 g/dL (6.4-8.2); Sodium Level 135 mmol/L (136-145); Troponin (Emerg Dept Use Only) < 0.02 ng/mL (0.0-0.045)
[2018-02-05 10:50] LABS: Blood Morphology Comment NOT SEEN (NOT SEEN); Platelet Estimate ADEQ
--- NOTE | 2018-02-05 10:50 | ER ---
Nurse's Notes [facility] Name: Rk Ram Age: 82 yrs Sex: Female : 1935 Arrival Date: 02/05/2018 Time: 08:51 Bed 8 Private MD: Diagnosis: Nausea and vomiting;Fever, unspecified;Weakness;Volume depletion;Type 1 diabetes mellitus;Elevated white blood cell count;Unspecified kidney failure;Pneumonia due to other specified bacteria;Cystitis Presentation: 02/05 08:43 Presenting complaint: EMS states: nausea and fever started yesterday. Temp 103.7 BP sv 100/44. Denies SOB. Zofran 4mg IVP given. Transition of care: patient was not received from another setting of care. Onset of symptoms was February 04, 2018. Risk Assessment: Do you want to hurt yourself or someone else? Patient reports no desire to harm self or others. Initial Sepsis Screen: Does the patient meet any 2 criteria? No. Patient's initial sepsis screen is negative. Does the patient have a suspected source of infection? No. Patient's initial sepsis screen is negative. Care prior to arrival: None. 08:43 Method Of Arrival: EMS: [facility] sv 08:43 Acuity: BRENT 3 sv Triage Assessment: 08:43 General: Appears in no apparent distress. comfortable, Behavior is calm, cooperative, sv appropriate for age. General: Reports fever for 1-2 days. Pain: Denies pain. Neuro: Level of Consciousness is awake, alert, obeys commands, Oriented to person, place, time, situation, Moves all extremities. Respiratory: Respiratory effort is even, unlabored, Respiratory pattern is regular, symmetrical. GI: Reports nausea. Derm: Skin is pink, warm \T\ dry. Musculoskeletal: Pt has a left knee brace on. Historical: - Allergies: 08:56 No Known Allergies; sv - Home Meds: 08:56 amlodipine 5 mg tab 1 tab once daily [Active]; labetalol 200 mg Oral tab 1 tab daily sv [Active]; mirtazapine 15 mg Oral TbDL 1 tab nightly [Active]; pantoprazole 40 mg Oral TbEC 1 tab once daily [Active]; spironolactone 25 mg Oral tab 1 tab once daily [Active]; rosuvastatin oral oral [Active]; valsartan oral oral [Active]; Labetalol Oral [Active]; Norvasc Oral [Active]; - PMHx: 08:56 Diabetes - IDDM; GERD; Hyperlipidemia; Hypothyroidism; Osteoporosis; sv - PSHx: 08:56 Cholecystectomy; Appendectomy; Hysterectomy; sv - Immunization history:: Flu vaccine is up to date. - Social history:: Smoking status: Patient/guardian denies using tobacco. - Ebola Screening: : No symptoms or risks identified at this time. - Family history:: not pertinent. Screenin:57 Abuse screen: Denies threats or abuse. Denies injuries from another. Nutritional sv screening: No deficits noted. Tuberculosis screening: No symptoms or risk factors identified. Fall Risk None identified. Assessment: 09:23 Reassessment: Patient appears in no apparent distress at this time. No changes from sv previously documented assessment. 10:10 Reassessment: Patient appears in no apparent distress at this time. No changes from sv previously documented assessment. Patient and/or family updated on plan of care and expected duration. Pain level reassessed. Patient is alert, oriented x 3, equal unlabored respirations, skin warm/dry/pink. 11:57 Reassessment: Patient appears in no apparent distress at this time. No changes from sv previously documented assessment. Patient and/or family updated on plan of care and expected duration. Pain level reassessed. Patient is alert, oriented x 3, equal unlabored respirations, skin warm/dry/pink. 12:08 Reassessment: Nurse to call back for report. sv 12:35 Reassessment: Patient appears in no apparent distress at this time. Patient and/or sv family updated on plan of care and expected duration. Pain level reassessed. Patient is alert, oriented x 3, equal unlabored respirations, skin warm/dry/pink. Vital Signs: 08:56 BP 103 / 42; Pulse 90; Resp 16; Temp 100.4; Pulse Ox 96% ; Weight 58.97 kg; Height 5 sv ft. 1 in. (154.94 cm); Pain 0/10; 10:05 BP 125 / 47; Pulse 101; Resp 17; Pulse Ox 96% ; sv 10:28 Temp 99.8(O); lt1 10:33 BP 120 / 81; Pulse 86; Resp 20; Pulse Ox 100% on R/A; hb 11:41 BP 109 / 46; Pulse 89; Resp 16; Pulse Ox 96% ; sv 08:56 Body Mass Index 24.56 (58.97 kg, 154.94 cm) sv ED Course: 08:51 Patient arrived in ED. sv 08:51 Viktoriya Mahmood, RN is Primary Nurse. sv 08:53 Triage completed. sv 08:54 Aldo Mays MD is Attending Physician. castro 08:56 Arm band placed on Patient placed in an exam room, on a stretcher. sv 08:57 Patient has correct armband on for positive identification. Bed in low position. Side sv rails up X2. desk monitor on. Pulse ox on. NIBP on. Door closed. Head of bed elevated. 08:57 Maintain EMS IV. Dressing intact. Site clean \T\ dry. Gauge \T\ site: 18G R AC. sv 10:01 X-ray completed. Portable x-ray completed in exam room. Patient tolerated procedure kw well. 10:01 XRAY Chest (1 view) In Process Unspecified. EDMS 10:11 EKG done, by video game technician. reviewed by Aldo Mays MD. sm3 10:23 Procalcitonin Sent. sv 10:24 Basic Metabolic Panel Sent. sv 10:24 CBC with Diff Sent. sv 10:24 LFT's Sent. sv 10:24 Magnesium Sent. sv 10:24 NT PRO-BNP Sent. sv 10:24 PT-INR Sent. sv 10:24 Troponin (emerg Dept Use Only) Sent. sv 10:46 Marito Dumas MD is Hospitalizing Provider. castro 11:02 CT completed. Patient tolerated procedure well. Patient moved to CT via stretcher. Patient moved back from CT. 11:04 CT Chest Abdomen Pelvis W/O Contrast: no iv , no oral In Process Unspecified. EDMS 12:05 Straight cath inserted, using sterile technique, 16 Fr. Specimen obtained. Returned lt1 clive urine. Patient tolerated well. 12:43 No provider procedures requiring assistance completed. Patient admitted, IV remains in sv place. intact. Administered Medications: 10:10 Drug: NS 0.9% 1000 ml Route: IV; Rate: 1 bolus; Site: right antecubital; hb 11:00 Follow up: Response: No adverse reaction; IV Status: Completed infusion; IV Intake: sv 1000ml 10:10 Drug: Rocephin - (cefTRIAXone) 1 grams Route: IVPB; Infused Over: 30 mins; Site: right hb antecubital; 10:10 Drug: Zofran 4 mg Route: IVP; Site: right antecubital; hb 10:42 Follow up: Response: No adverse reaction sv 10:10 Drug: Pepcid 20 mg Route: IVP; Site: right antecubital; hb 10:42 Follow up: Response: No adverse reaction sv 11:57 Drug: Zithromax 500 mg Route: IVPB; Infused Over: 1 hrs; Site: right antecubital; sv 13:00 Follow up: Response: No adverse reaction; IV Status: Completed infusion; IV Intake: sv 250ml 11:57 Drug: NS 0.9% 1000 ml Route: IV; Rate: 1000 ml; Site: right antecubital; sv 13:00 Follow up: Response: No adverse reaction; IV Status: Completed infusion; IV Intake: sv 1000ml 11:57 Drug: NS 0.9% 1000 ml Route: IV; Rate: 1000 ml; Site: right antecubital; sv 13:00 Follow up: Response: No adverse reaction; IV Status: Completed infusion; IV Intake: sv 1000ml 12:40 Drug: Rocephin - (cefTRIAXone) 1 grams Route: IVPB; Infused Over: 30 mins; Site: right sv antecubital; 12:45 Follow up: Response: No adverse reaction; IV Status: Completed infusion; IV Intake: 10mlsv Intake: 11:00 IV: 1000ml; Total: 1000ml. sv 12:45 IV: 10ml; Total: 1010ml. sv 13:00 IV: 1000ml; Total: 2010ml. sv 13:00 IV: 1000ml; Total: 3010ml. sv 13:00 IV: 250ml; Total: 3260ml. sv Outcome: 10:49 Decision to Hospitalize by Provider. castro 12:35 Admitted to Tele accompanied by tech, family with patient, via stretcher, room 211, sv with chart, Report called to Brandon WEI 12:35 Condition: stable 12:35 Instructed on the need for admit. 12:44 Patient left the ED. sv Signatures: Dispatcher [employer] Viktoriya Waters RN RN sv Anderson, Corey, MD MD cha Jones, Susan sj Whitley, Kimberlee kw Baxter, Heather, RN RN Luz Schroeder sm3 Quinones, Andreea lt1 Corrections: (The following items were deleted from the chart) 08:58 08:43 Presenting complaint: EMS states: nausea and fever started yesterday. Temp 103.7 sv BP 100/44. Denies SOB. sv 12:19 12:17 Patient tolerated well. lt1 lt1 12:22 00:05 Patient tolerated well. lt1 lt1 12:25 12:05 Patient tolerated well. lt1 lt1
--- NOTE | 2018-02-05 10:50 | EDPHYS ---
Physician Documentation [facility] Name: Rk Ram Age: 82 yrs Sex: Female : 1935 Arrival Date: 02/05/2018 Time: 08:51 Bed 8 Private MD: ED Physician Aldo Mays HPI: 02/05 09:54 This 82 yrs old Female presents to ER via EMS with complaints of Nausea, Fever.castro 09:54 The patient presents to the emergency department with nausea, vomiting. Onset: The castro symptoms/episode began/occurred 1 week(s) ago. Possible causes: unknown. The symptoms are aggravated by nothing. The symptoms are alleviated by nothing. Associated signs and symptoms: The patient has no apparent associated signs or symptoms. Severity of symptoms: At their worst the symptoms were mild moderate. The patient has not experienced similar symptoms in the past. Historical: - Allergies: 08:56 No Known Allergies; sv - Home Meds: 08:56 amlodipine 5 mg tab 1 tab once daily [Active]; labetalol 200 mg Oral tab 1 tab daily sv [Active]; mirtazapine 15 mg Oral TbDL 1 tab nightly [Active]; pantoprazole 40 mg Oral TbEC 1 tab once daily [Active]; spironolactone 25 mg Oral tab 1 tab once daily [Active]; rosuvastatin oral oral [Active]; valsartan oral oral [Active]; Labetalol Oral [Active]; Norvasc Oral [Active]; - PMHx: 08:56 Diabetes - IDDM; GERD; Hyperlipidemia; Hypothyroidism; Osteoporosis; sv - PSHx: 08:56 Cholecystectomy; Appendectomy; Hysterectomy; sv - Immunization history:: Flu vaccine is up to date. - Social history:: Smoking status: Patient/guardian denies using tobacco. - Ebola Screening: : No symptoms or risks identified at this time. - Family history:: not pertinent. ROS: 09:54 Eyes: Negative for injury, pain, redness, and discharge, ENT: Negative for injury, castro pain, and discharge, Neck: Negative for injury, pain, and swelling, Cardiovascular: Negative for chest pain, palpitations, and edema, Respiratory: Negative for shortness of breath, cough, wheezing, and pleuritic chest pain, Back: Negative for injury and pain, : Negative for injury, bleeding, discharge, and swelling, MS/Extremity: Negative for injury and deformity, Skin: Negative for injury, rash, and discoloration, Neuro: Negative for headache, weakness, numbness, tingling, and seizure, Psych: Negative for depression, anxiety, suicide ideation, homicidal ideation, and hallucinations, Allergy/Immunology: Negative for hives, rash, and allergies, Endocrine: Negative for neck swelling, polydipsia, polyuria, polyphagia, and marked weight changes, Hematologic/Lymphatic: Negative for swollen nodes, abnormal bleeding, and unusual bruising. 09:54 Constitutional: Positive for body aches, chills, malaise, poor PO intake. 09:54 Abdomen/GI: Positive for nausea and vomiting. Exam: 09:54 Head/Face: Normocephalic, atraumatic. Eyes: Pupils equal round and reactive to light, castro extra-ocular motions intact. Lids and lashes normal. Conjunctiva and sclera are non-icteric and not injected. Cornea within normal limits. Periorbital areas with no swelling, redness, or edema. ENT: Nares patent. No nasal discharge, no septal abnormalities noted. Tympanic membranes are normal and external auditory canals are clear. Oropharynx with no redness, swelling, or masses, exudates, or evidence of obstruction, uvula midline. Mucous membranes moist. Neck: Trachea midline, no thyromegaly or masses palpated, and no cervical lymphadenopathy. Supple, full range of motion without nuchal rigidity, or vertebral point tenderness. No Meningismus. Chest/axilla: Normal chest wall appearance and motion. Nontender with no deformity. No lesions are appreciated. Cardiovascular: Regular rate and rhythm with a normal S1 and S2. No gallops, murmurs, or rubs. Normal PMI, no JVD. No pulse deficits. Respiratory: Lungs have equal breath sounds bilaterally, clear to auscultation and percussion. No rales, rhonchi or wheezes noted. No increased work of breathing, no retractions or nasal flaring. Abdomen/GI: Soft, non-tender, with normal bowel sounds. No distension or tympany. No guarding or rebound. No evidence of tenderness throughout. Back: No spinal tenderness. No costovertebral tenderness. Full range of motion. Skin: Warm, dry with normal turgor. Normal color with no rashes, no lesions, and no evidence of cellulitis. MS/ Extremity: Pulses equal, no cyanosis. Neurovascular intact. Full, normal range of motion. Neuro: Awake and alert, GCS 15, oriented to person, place, time, and situation. Cranial nerves II-XII grossly intact. Motor strength 5/5 in all extremities. Sensory grossly intact. Cerebellar exam normal. Normal gait. Psych: Awake, alert, with orientation to person, place and time. Behavior, mood, and affect are within normal limits. 09:54 Constitutional: The patient appears febrile, in obvious distress, mildly distressed. Vital Signs: 08:56 BP 103 / 42; Pulse 90; Resp 16; Temp 100.4; Pulse Ox 96% ; Weight 58.97 kg; Height 5 sv ft. 1 in. (154.94 cm); Pain 0/10; 10:05 BP 125 / 47; Pulse 101; Resp 17; Pulse Ox 96% ; sv 10:28 Temp 99.8(O); lt1 10:33 BP 120 / 81; Pulse 86; Resp 20; Pulse Ox 100% on R/A; hb 11:41 BP 109 / 46; Pulse 89; Resp 16; Pulse Ox 96% ; sv 08:56 Body Mass Index 24.56 (58.97 kg, 154.94 cm) sv MDM: 08:54 Patient medically screened. [facility] 09:57 Data reviewed: vital signs, nurses notes, lab test result(s), EKG, radiologic studies, castro plain films. 02/05 08:51 Order name: Flu; Complete Time: 10:40 sv 02/05 09:53 Order name: Basic Metabolic Panel [facility] 02/05 09:53 Order name: CBC with Diff [facility] 02/05 09:53 Order name: LFT's [facility] 02/05 09:53 Order name: Magnesium [facility] 02/05 09:53 Order name: NT PRO-BNP [facility] 02/05 09:53 Order name: PT-INR [facility] 02/05 09:53 Order name: Troponin (emerg Dept Use Only) [facility] 02/05 09:53 Order name: Procalcitonin [facility] 02/05 09:53 Order name: Lactate; Complete Time: 10:51 [facility] 02/05 09:53 Order name: Lipase; Complete Time: 10:51 [facility] 02/05 09:53 Order name: Blood Culture Adult (2) [facility] 02/05 09:53 Order name: Urine Culture [facility] 02/05 09:54 Order name: Basic Metabolic Panel; Complete Time: 10:51 [facility] 02/05 09:54 Order name: CBC with Automated Diff; Complete Time: 10:51 [facility] 02/05 09:54 Order name: Liver (Hepatic) Function; Complete Time: 10:51 [facility] 02/05 09:54 Order name: Magnesium; Complete Time: 10:51 [facility] 02/05 09:54 Order name: NT PRO-BNP; Complete Time: 10:51 [facility] 02/05 09:54 Order name: Protime (+INR); Complete Time: 10:40 [facility] 02/05 09:54 Order name: Troponin (Emerg Dept Use Only); Complete Time: 10:51 [facility] 02/05 09:54 Order name: Procalcitonin; Complete Time: 11:36 [facility] 02/05 10:34 Order name: Manual Differential; Complete Time: 10:51 [facility] 02/05 12:00 Order name: ABG Arterial Blood Gas [facility] 02/05 12:22 Order name: Urine Dipstick--Ancillary (enter results) 02/05 12:28 Order name: Creatine Phosphokinase [facility] 02/05 12:28 Order name: CKMB Creatine Kinase MB [facility] 02/05 12:28 Order name: Troponin I [facility] 02/05 12:28 Order name: C-Reactive Protein [facility] 02/05 12:28 Order name: Amylase Level [facility] 02/05 12:28 Order name: Lipase [facility] 02/05 09:53 Order name: XRAY Chest (1 view); Complete Time: 10:40 [facility] 02/05 09:53 Order name: EKG; Complete Time: 09:54 [facility] 02/05 09:53 Order name: Cardiac monitoring; Complete Time: 10:09 [facility] 02/05 09:53 Order name: EKG - Nurse/Tech; Complete Time: 10:32 [facility] 02/05 09:53 Order name: IV Saline Lock; Complete Time: 10:09 [facility] 02/05 09:53 Order name: Labs collected and sent; Complete Time: 10:09 [facility] 02/05 09:53 Order name: O2 Per Protocol; Complete Time: 10:09 [facility] 02/05 09:53 Order name: O2 Sat Monitoring; Complete Time: 10:09 [facility] 02/05 09:53 Order name: Urine Dipstick-Ancillary (obtain specimen); Complete Time: 12:10 [facility] 02/05 10:53 Order name: CT Chest Abdomen Pelvis W/O Contrast: no iv , no oral; Complete Time: 11:36 [facility] 02/05 12:08 Order name: Straight Cath - Urine; Complete Time: 12:09 hb Administered Medications: 10:10 Drug: NS 0.9% 1000 ml Route: IV; Rate: 1 bolus; Site: right antecubital; hb 11:00 Follow up: Response: No adverse reaction; IV Status: Completed infusion; IV Intake: sv 1000ml 10:10 Drug: Rocephin - (cefTRIAXone) 1 grams Route: IVPB; Infused Over: 30 mins; Site: right hb antecubital; 10:10 Drug: Zofran 4 mg Route: IVP; Site: right antecubital; hb 10:42 Follow up: Response: No adverse reaction sv 10:10 Drug: Pepcid 20 mg Route: IVP; Site: right antecubital; hb 10:42 Follow up: Response: No adverse reaction sv 11:57 Drug: Zithromax 500 mg Route: IVPB; Infused Over: 1 hrs; Site: right antecubital; sv 13:00 Follow up: Response: No adverse reaction; IV Status: Completed infusion; IV Intake: sv 250ml 11:57 Drug: NS 0.9% 1000 ml Route: IV; Rate: 1000 ml; Site: right antecubital; sv 13:00 Follow up: Response: No adverse reaction; IV Status: Completed infusion; IV Intake: sv 1000ml 11:57 Drug: NS 0.9% 1000 ml Route: IV; Rate: 1000 ml; Site: right antecubital; sv 13:00 Follow up: Response: No adverse reaction; IV Status: Completed infusion; IV Intake: sv 1000ml 12:40 Drug: Rocephin - (cefTRIAXone) 1 grams Route: IVPB; Infused Over: 30 mins; Site: right sv antecubital; 12:45 Follow up: Response: No adverse reaction; IV Status: Completed infusion; IV Intake: 10mlsv Disposition: 02/05/18 10:49 Hospitalization ordered by Marito Dumas for Inpatient Admission. Preliminary diagnosis are Nausea and vomiting, Fever, unspecified, Weakness, Volume depletion, Type 1 diabetes mellitus, Elevated white blood cell count, Unspecified kidney failure, Pneumonia due to other specified bacteria, Cystitis. - Bed requested for Telemetry/MedSurg (Inpatient). - Status is Inpatient Admission. sv - Condition is Fair. - Problem is new. - Symptoms have improved. UTI on Admission? Yes Signatures: Dispatcher [employer] EDMS Viktoriya Mahmood RN RN sv Anderson, Corey, MD MD cha Baxter, Heather, RN RN hb Botello, Elizabeth eb Corrections: (The following items were deleted from the chart) 10:55 10:49 Hospitalization Ordered by Marito Dumas MD for Inpatient Admission. Preliminary [facility] diagnosis is Nausea and vomiting; Fever, unspecified; Weakness; Volume depletion; Type 1 diabetes mellitus. Bed requested for Telemetry/MedSurg (Inpatient). Status is Inpatient Admission. Condition is Fair. Problem is new. Symptoms have improved. UTI on Admission? No. castro 11:00 10:55 02/05/2018 10:49 Hospitalization Ordered by Marito Dumas MD for Inpatient eb Admission. Preliminary diagnosis is Nausea and vomiting; Fever, unspecified; Weakness; Volume depletion; Type 1 diabetes mellitus; Elevated white blood cell count; Unspecified kidney failure. Bed requested for Telemetry/MedSurg (Inpatient). Status is Inpatient Admission. Condition is Fair. Problem is new. Symptoms have improved. UTI on Admission? No. castro 11:37 11:00 02/05/2018 10:49 Hospitalization Ordered by Marito Dumas MD for Inpatient castro Admission. Preliminary diagnosis is Nausea and vomiting; Fever, unspecified; Weakness; Volume depletion; Type 1 diabetes mellitus; Elevated white blood cell count; Unspecified kidney failure. Bed requested for Telemetry/MedSurg (Inpatient). Status is Inpatient Admission. Condition is Fair. Problem is new. Symptoms have improved. UTI on Admission? No. eb 11:54 11:37 02/05/2018 10:49 Hospitalization Ordered by Marito Dumas MD for Inpatient eb Admission. Preliminary diagnosis is Nausea and vomiting; Fever, unspecified; Weakness; Volume depletion; Type 1 diabetes mellitus; Elevated white blood cell count; Unspecified kidney failure; Pneumonia due to other specified bacteria. Bed requested for Telemetry/MedSurg (Inpatient). Status is Inpatient Admission. Condition is Fair. Problem is new. Symptoms have improved. UTI on Admission? No. castro 12:13 11:54 02/05/2018 10:49 Hospitalization Ordered by Marito Dumas MD for Inpatient castro Admission. Preliminary diagnosis is Nausea and vomiting; Fever, unspecified; Weakness; Volume depletion; Type 1 diabetes mellitus; Elevated white blood cell count; Unspecified kidney failure; Pneumonia due to other specified bacteria. Bed requested for Telemetry/MedSurg (Inpatient). Status is Inpatient Admission. Condition is Fair. Problem is new. Symptoms have improved. UTI on Admission? No. eb 12:44 12:13 02/05/2018 10:49 Hospitalization Ordered by Marito Dumas MD for Inpatient sv Admission. Preliminary diagnosis is Nausea and vomiting; Fever, unspecified; Weakness; Volume depletion; Type 1 diabetes mellitus; Elevated white blood cell count; Unspecified kidney failure; Pneumonia due to other specified bacteria; Cystitis. Bed requested for Telemetry/MedSurg (Inpatient). Status is Inpatient Admission. Condition is Fair. Problem is new. Symptoms have improved. UTI on Admission? Yes. castro
--- NOTE | 2018-02-05 11:21 | RAD REPORT ---
EXAM DESCRIPTION: CT - Chest Abd Pelvis Wo Con - 02/05/2018 11:04 am CLINICAL HISTORY: Cough and abdominal pain TECHNIQUE: Computed axial tomography of the chest, abdomen and pelvis was obtained. Oral contrast wa s given. IV contrast was not requested. All CT scans are performed using dose optimization technique as appropriate and may include automated exposure control or mA/KV adjustment according to patient size. FINDINGS: The evaluation of mediastinum, jose, vessels and solid organs is limited secondary to the lack of IV contrast administration No mediastinal or hilar lymphadenopathy is seen. A pleural effusion is not present. A pericardial effusion is not seen. Mild right lower lobe ground-glass opacity The liver, spleen, pancreas, adrenals and kidneys appear grossly normal Diverticula stem from the colon without evidence of diverticulitis. A hysterectomy has been performed. The gallbladder has been removed. Small hiatal hernia Rectum mildly distended with stool IMPRESSION: Mild right lower lobe ground-glass opacities indicative of a mild alveolitis The rectum is mildly distended with stool
[2018-02-05] MEDS ORDERED: SODIUM CHL 0.9% 1000 ML BAG IV ONE (11:22)
[2018-02-05] MEDS ORDERED: NA CHLORIDE 0.9% 500 ML IV PRN (11:22)
[2018-02-05] MEDS ORDERED: AZITHROMYCIN 500 MG/250 ML BAG ONE (11:56)
[2018-02-05] MEDS ORDERED: NA CHLORIDE 0.9% 2,000 ML ONE (11:56)
[2018-02-05 11:59] LABS: Arterial Blood Carboxyhemoglob 1.5 % (0-1.5); Blood Gas Oxyhemoglobin 90.4 % (94-97); Blood O2 Saturation 92.8 % (92-98.5)
[2018-02-05] MEDS ORDERED: CEFOXITIN/SWI 2gm 2 GM/20 ML SYR IV SCH (12:00)
[2018-02-05 12:27] LABS: Amylase Level 35 U/L (25-115); CKMB Creatine Kinase MB < 1.0 ng/mL (0.3-3.6); Creatine Phosphokinase 79 U/L (26-192); Lipase 89 U/L (73-393); Troponin I < 0.02 ng/mL (0.0-0.045)
[2018-02-05 13:45] LABS: Urine Blood 1+ (NEG); Urine Glucose NEGATIVE (NEG); Urine Protein 2+ (NEG); Urine Specific Gravity 1.015 (1.005-1.030); Urine pH 5.5 (5.0-7.0)
[2018-02-05] MEDS: NA CHLORIDE 0.9% 1,000 ML IV SCH ×2 (14:33→23:21)
[2018-02-05] MEDS: CEFEPIME/SWI 2gm 2 GM/20 ML SYR IV SCH (14:38)
[2018-02-05] MEDS: VANCOMYCIN/NS 1 gm 1 GM/250 ML BAG IVPB SCH (14:38)
--- NOTE | 2018-02-05 14:49 | EKG ---
Test Date: 2018-02-05 Test Time: 10:03:43 Painter Assistant: ELVA MEASUREMENT RESULTS: Intervals: Rate: 100 HI: 154 QRSD: 86 QT: 336 QTc: 433 [place]: P: 33 HI: 154 QRS: 34 T: 41 INTERPRETIVE STATEMENTS: Normal sinus rhythm Cannot rule out Anterior infarct, age undetermined Abnormal ECG No previous ECG available for comparison Electronically Signed On 02-05-18 14:49:03 [employer] OPERATOR by Trent Casillas
[2018-02-05 15:27] VITALS: BMI 24.5
[2018-02-05] MEDS ORDERED: HYDROCODONE/APAP 5/325 MG TAB PO ONE (16:46)
[2018-02-05 16:57] LABS: Urine Appearance CLEAR; Urine Bilirubin NEGATIVE (NEG); Urine Blood TRACE (NEG); Urine Color YELLOW; Urine Glucose NEGATIVE (NEG); Urine Protein TRACE (NEG)
[2018-02-05 17:12] LABS: Urine RBC NONE SEEN /HPF (NONE SEEN)
[2018-02-05 17:13] LABS: Urine Amorphous Sediment 1+ /HPF (NONE SEEN); Urine Bacteria <20 /HPF (<20); Urine Culture Reflex Order REFLEXED
--- NOTE | 2018-02-05 17:46 | P.INFCA ---
Sepsis Focused Assessment - Sepsis Screen Result Severe Sepsis: Positive Septic Shock: Negative - Vital Signs Reviewed: Yes Temperature: 99.5 F Heart rate: 95 Blood Pressure: 132/57 Respiratory Rate: 18 O2 Sat by Pulse Oximetry: 93 - Examination Date exam was performed: 02/05/18 Time exam was performed: 17:32 Heart: Regular rate/rhythm, S1, S2 Lungs: Clear bilaterally Peripheral pulses: 2+ Slightly diminished Peripheral pulse location: Pedal Capillary refill: <2 Seconds Skin examination: Normal turgor
[2018-02-05] MEDS ORDERED: D50W 25 GM/50 ML SYRINGE IV PRN (18:03)
[2018-02-05] MEDS ORDERED: GLUCAGON 1 MG/VIAL IM PRN (18:03)
[2018-02-05] MEDS: ACETAMINOPHEN 325 MG TABLET PO PRN (18:08)
[2018-02-05] MEDS: ONDANSETRON 4 MG/2 ML VIAL IV PRN (19:03)
[2018-02-05] MEDS: MIRTAZAPINE 15 MG TAB PO SCH (20:14)
[2018-02-05] MEDS: INSULIN -REGULAR HUMAN 50 UNIT/0.5 ML ML SQ SCH (21:00)
--- NOTE | 2018-02-06 00:40 | HP ---
Date of Admission: 02/05/2018 Code Status: Full. Chief Complaint: Fever, chills. History Of Present Illness: The patient is an 82-year-old female with past medical history of diabet es mellitus type 2 insulin requiring, hypertension, hyperlipidemia, hypothyroidism, who recently had surgery 6 days prior to admission at [facility] after fall and trauma to her left knee. The patient was in her usual state of health until yesterday when the patient had sudden onset of fever, chills, nausea and vomiting, and had decreased p.o. intake. The patient denies any specific pain. No dysuri a. The patient had worsening symptoms, was unable to get over her fever. Therefore, came into the E R for further evaluation. Her symptoms were constant, severe, and progressively worsening. Upon arr ival, she was hypotensive, tachycardic, had a fever of 100.4. Her workup showed a white count of 26, 000 with bandemia. Source of infection was not clear. She also had elevation in her creatinine leve l and troponin was elevated at 26,000. The patient was started on IV antibiotics and then referred f or admission. When the patient was seen in the ER, she was awake, alert, oriented x3, in some mild d istress. Past Medical History: Diabetes mellitus type 2 insulin requiring, hypertension, hyperlipidemia, hypo thyroidism. Surgical History: Left knee replacement 6 weeks prior to admission at [facility], status post fall, bilateral cataract replacement. Allergies: NO KNOWN DRUG ALLERGIES. Medications: List reviewed. Code Status: Full code. Social History: The patient is , lives with her . Retired. Denies any alcohol use or tobacco use. No illicit drug use. Family History: Father of heart attack in his 80s. Mother of complications of cancer. Review of Systems: An 11-point system reviewed, negative except as per HPI. Physical Examination: Vital Signs: Temperature 100.4, heart rate 101, respirations 17, blood pressure 103/42, O2 96% on ro om air. General: Awake, alert, oriented x3. Mild distress, ill-appearing elderly female, frail. HEENT: Normocephalic, atraumatic. PERRLA, EOMI. Dry mucous membranes. Oropharynx is clear. Conju nctiva is anicteric. Neck: Supple. No JVD. Trachea midline. CV: S1, S2. Peripheral pulses present. No murmurs. Respiratory: Clear to auscultation bilaterally. No wheezing or stridor. Gastrointestinal: Abdomen is soft, nontender, nondistended. Positive bowel sounds. No guarding or rigidity. Extremities: No clubbing, cyanosis, or edema. No calf tenderness. Skin: No rashes. Normal skin turgor. Musculoskeletal: Left knee incision site clean, dry, intact. No erythema or effusion. Neuro: Cranial nerves 2 through 12 intact grossly. No focal neurological deficit. Speech is normal . Strength is 5/5 bilateral upper and lower extremities. Sensation intact to light touch. Integumentary: Cap refill less than 2 seconds. Laboratory Data: Sodium 135, potassium 3.9, chloride 101, CO2 24, BUN 19, creatinine 1.32, glucose 1 31, lactate 1.4, calcium 8.6. Troponin less than 0.02. CK 79. CRP 176. Procalcitonin 26.4. ABG; pH 7.45, pCO2 34.6, pO2 62.2, bicarb 23. UA pending. INR 1.31. WBC 26, H and H 11.7/34.4, platelet s 231, neutrophils 92%. Influenza screen is negative. Chest, abdomen, pelvis shows mild right lower lobe ground-glass opacities indicative of mild alveolitis. Rectum is mildly distended with stool. Chest x-ray, personally reviewed, shows no acute abnormalities. Assessment And Plan: An 82-year-old female with: 1.Sepsis. The patient has fever 100.4, tachycardic at 101, and a white count of 26,000 with bandemi a. Procalcitonin elevated at 26.45. Kidney function is elevated at 1.32, unclear source. CT does s how some mild alveolitis in the right lower lobe of the lung. We will start on broad-spectrum IV ant ibiotics and obtain cultures. We will obtain UA. 2.Right lower lobe alveolitis. Continue with IV antibiotics. Follow up on sputum culture. 3.Acute kidney injury. Creatinine is elevated at 1.32. We will continue with IV fluid resuscitatio n. 4.Intractable nausea and vomiting, cyclical, likely related to sepsis. We will treat with antiemeti cs. 5.Diabetes mellitus type 2, insulin requiring with hyperglycemia. We will start on sliding scale in sulin and resume home dose as appropriate. 6.Essential hypertension, currently on the hypotensive side. Hold blood pressure medications for no w. 7.Mixed hyperlipidemia. 8.Hypothyroidism. We will resume home medications. 9.Gastrointestinal and deep venous thrombosis prophylaxis addressed with PPI and Lovenox. Plan: We will admit to med/surg, place as inpatient, start on sepsis bundle. /DIANNA Voice ID: [id number]
[2018-02-06 06:05] LABS: Absolute Monocytes 1.4 K/uL (0.1-1.3); Basophils % 0.1 % (0-1.3); Eosinophils % 0.1 % (0-4.4); Hematocrit 33.1 % (36.0-45.0); Lymphocytes % 3.6 % (15.3-44.8); Monocytes % 4.9 % (3.3-12.3); RBC Red Blood Cell Count 3.63 M/uL (3.86-4.86)
[2018-02-06 06:13] LABS: Albumin 2.7 g/dL (3.4-5.0); Bilirubin Total 0.5 mg/dL (0.2-1.0); Potassium 3.9 mmol/L (3.5-5.1); Protein, Total 6.5 g/dL (6.4-8.2)
[2018-02-06] MEDS: LEVOTHYROXINE SOD 0.05 MG TABLET PO SCH (06:20)
[2018-02-06] MEDS: INSULIN -REGULAR HUMAN 50 UNIT/0.5 ML ML SQ SCH ×4 (07:30→21:00)
[2018-02-06] MEDS ORDERED: INSULIN GLARGINE HUM REC ANLOG 40 UNIT SQ SCH (08:00)
[2018-02-06 09:17] LABS: Platelet Estimate ADEQ
[2018-02-06 09:18] LABS: Blood Morphology Comment NOT SEEN (NOT SEEN)
[2018-02-06] MEDS: NA CHLORIDE 0.9% 1,000 ML IV SCH ×2 (10:00→21:46)
[2018-02-06] MEDS: ROSUVASTATIN 10 MG TAB PO SCH (10:09)
[2018-02-06] MEDS: PANTOPRAZOLE 40MG TABLET PO SCH (10:09)
[2018-02-06] MEDS: ACETAMINOPHEN 325 MG TABLET PO PRN (13:12)
[2018-02-06] MEDS: CEFEPIME/SWI 2gm 2 GM/20 ML SYR IV SCH (13:12)
--- NOTE | 2018-02-06 14:18 | PN ---
Date of Progress Note: 02/06/2018 History: The patient seen and examined. Chart reviewed and case discussed with RN. The patient sta celia she feels better. No fevers overnight. No further chills. Family at the bedside. Treatment pl an explained. All questions answered. Medications: List reviewed. Physical Examination: Vital Signs: Temperature 98.5, heart rate 69, blood pressure 129/60, respirations 16, O2 95% on room air. General: Awake, alert, oriented x3. Elderly female, ill-appearing. CV: S1 and S2. Regular rate and rhythm. Peripheral pulses present. Respiratory: Moving air well bilaterally. No wheezing. Gastrointestinal: Abdomen is soft, nontender, nondistended. Positive bowel sounds. Extremities: No clubbing, cyanosis, or edema. Neuro: Nonfocal. Skin: No rashes. Normal skin turgor. Cap refill less than 2 seconds. Laboratory Data: Sodium 145, potassium 3.9, chloride 113, CO2 22, BUN 15, creatinine 0.99, glucose 1 22, calcium 8.1. WBC 28.4, H and H 11.2 and 33.1, neutrophils 91%, bands 3%, procalcitonin 41.9. Assessment And Plan: An 82-year-old female with: 1.Sepsis. The patient's white count is elevated. We will continue IV antibiotics, broad spectrum. Procalcitonin also trending up. Kidney function has improved. Creatinine now normalized. We will continue to monitor. Cultures pending. Likely source of infection is urinary tract infection, alveo litis. 2.Acute cystitis without hematuria. We will continue IV antibiotics. Follow up on urine cultures. 3.Right lower lobe alveolitis, on antibiotics. 4.Acute kidney injury. Creatinine normalized. Continue with IV fluids and monitor. 5.Intractable nausea, vomiting, non-cyclical, improved. We will start on diet. 6.Diabetes mellitus type 2, insulin requiring with hyperglycemia. Continue sliding scale insulin. Resume home dose as appropriate. 7.Essential hypertension. Currently hypotensive. Blood pressure now improved. Continue to monitor . 8.Mixed hyperlipidemia. Continue statin. 9.Hypothyroidism, Synthroid. 10.Gastrointestinal and deep vein thrombosis prophylaxes, with PPI and Lovenox. Plan: Continue to monitor closely. The patient is still septic. SA/MODL Voice ID: [id number] Report ID: [id number]
[2018-02-06] MEDS: ONDANSETRON 4 MG/2 ML VIAL IV PRN (15:45)
[2018-02-06] MEDS: MIRTAZAPINE 15 MG TAB PO SCH (21:46)
[2018-02-07] MEDS: VANCOMYCIN/NS 1 gm 1 GM/250 ML BAG IVPB SCH (00:08)
[2018-02-07 05:11] LABS: Absolute Lymphocytes (CBC) 0.9 K/uL (0.7-4.9); Absolute Neutrophil 16.1 K/uL (1.8-8.0); Basophils % 0.1 % (0-1.3); Eosinophils % 0.7 % (0-4.4); Hematocrit 30.1 % (36.0-45.0); MPV 8.8 fL (7.6-11.3); Monocytes % 5.6 % (3.3-12.3); RBC Red Blood Cell Count 3.34 M/uL (3.86-4.86)
[2018-02-07] MEDS: LEVOTHYROXINE SOD 0.05 MG TABLET PO SCH (05:40)
[2018-02-07] MEDS: NA CHLORIDE 0.9% 1,000 ML IV SCH ×3 (05:40→21:28)
[2018-02-07 05:44] LABS: Albumin 2.2 g/dL (3.4-5.0); Bilirubin Total 0.3 mg/dL (0.2-1.0); Potassium 3.1 mmol/L (3.5-5.1); Protein, Total 5.7 g/dL (6.4-8.2)
[2018-02-07] MEDS: INSULIN -REGULAR HUMAN 50 UNIT/0.5 ML ML SQ SCH ×4 (07:30→21:00)
[2018-02-07] MEDS: ROSUVASTATIN 10 MG TAB PO SCH (08:12)
[2018-02-07] MEDS: PANTOPRAZOLE 40MG TABLET PO SCH (08:13)
[2018-02-07] MEDS ORDERED: VANCOMYCIN/NS 1 gm 1 GM/250 ML BAG IVPB SCH (11:00)
[2018-02-07] MEDS: CEFEPIME/SWI 2gm 2 GM/20 ML SYR IV SCH (12:54)
[2018-02-07] MEDS: HYDROCODONE/APAP 10/325 TAB PO PRN ×2 (12:55→18:22)
--- NOTE | 2018-02-07 16:34 | PN ---
Date of Progress Note: 02/07/2018 History: The patient seen and examined. Chart reviewed and case discussed with RN. Family at the bedside. Treatment plan explained. All questions answered. The patient states she feels significantly better. Does have a decreased appetite, otherwise doing well. No further fevers or chills. Medications: List reviewed. Physical Examination: Vital Signs: Temperature 98.7, heart rate 71, blood pressure 124/58, respirations 18, O2 94% on room air. General: Awake, alert, oriented x3, some mild distress, ill-appearing elderly female. CV: S1, S2. Peripheral pulses present. No murmurs. Respiratory: Moving air well bilaterally. No wheezing. Gastrointestinal: Abdomen is soft, nontender, nondistended. Positive bowel sounds. Extremities: No clubbing, cyanosis, or edema. Neurologic: Nonfocal. Laboratory Data: Sodium 143, potassium 3.1, chloride 112, CO2 21, BUN 11, creatinine 0.84, glucose 107, calcium 7.7, albumin 2.2. WBC 18.2, H and H 10 and 30.1, platelets 209, neutrophils 88%. No bands. Blood cultures gram- negative rods from 3/4 bottles. Urine culture growing Escherichia coli sensitive to Rocephin. Assessment And Plan: An 82-year-old female with: 1. Sepsis secondary to Escherichia coli present in urine cultures and likely also in blood cultures, currently showing gram-negative rods. WBC count trending down. The patient has been afebrile for 24 hours. Sepsis is proving. We will continue with IV fluid hydration. 2. Acute cystitis without hematuria secondary to Escherichia coli. We will continue cefepime. We will discontinue vancomycin. 3. Right lower lobe alveolitis, improved. 4. Acute kidney injury. Creatinine is normalized. We will continue to monitor. 5. Intractable nausea, vomiting, non-cyclical, resolved. The patient is tolerating her diet, however, does not have much of an appetite. We will start supplements. 6. Diabetes mellitus type 2, insulin requiring with hyperglycemia. We will continue sliding scale insulin and Accu-Cheks. 7. Severe protein-calorie malnutrition. Albumin is 2.2. We will add high- protein Ensure b.i.d. 8. Essential hypertension. The patient was initially hypotensive, however, blood pressures were trending upward. Continue to monitor and resume medications as needed. 9. Mixed hyperlipidemia. Continue statin. 10. Hypothyroidism, Synthroid. 11. Gastrointestinal and deep venous thrombosis prophylaxis with PPI and Lovenox. 12. Hypokalemia Plan: Follow up on blood culture. Discontinue vancomycin. Ambulate. Likely discharge in th next 24 to 48 hours. /DIANNA Voice ID: [id number] Report ID: [id number] MARY BETH
[2018-02-07] MEDS: MIRTAZAPINE 15 MG TAB PO SCH (21:28)
[2018-02-07] MEDS: ENSURE ENLIVE 237 ML CAN PO SCH (21:31)
[2018-02-08] MEDS: LEVOTHYROXINE SOD 0.05 MG TABLET PO SCH (05:39)
[2018-02-08 06:11] LABS: Absolute Lymphocytes (CBC) 1.2 K/uL (0.7-4.9); Absolute Monocytes 1.1 K/uL (0.1-1.3); Absolute Neutrophil 10.2 K/uL (1.8-8.0); Basophils % 0.2 % (0-1.3); Eosinophils % 1.7 % (0-4.4); Hematocrit 31.2 % (36.0-45.0); Lymphocytes % 9.7 % (15.3-44.8); MPV 8.4 fL (7.6-11.3); Monocytes % 8.3 % (3.3-12.3); RBC Red Blood Cell Count 3.48 M/uL (3.86-4.86)
[2018-02-08 06:30] LABS: Albumin 2.4 g/dL (3.4-5.0); Bilirubin Total 0.3 mg/dL (0.2-1.0); Potassium 3.2 mmol/L (3.5-5.1); Protein, Total 6.1 g/dL (6.4-8.2)
[2018-02-08] MEDS: INSULIN -REGULAR HUMAN 50 UNIT/0.5 ML ML SQ SCH (07:30)
[2018-02-08] MEDS: ROSUVASTATIN 10 MG TAB PO SCH (08:37)
[2018-02-08] MEDS: PANTOPRAZOLE 40MG TABLET PO SCH (08:37)
[2018-02-08] MEDS: ENSURE ENLIVE 237 ML CAN PO SCH (09:00)
[2018-02-08] MEDS ORDERED: CEFEPIME/SWI 2gm 2 GM/20 ML SYR IV SCH (09:00)
[2018-02-08 10:03] VITALS: O2SAT 96
[2018-02-08 10:49] VITALS: BP 154/65; TEMP 98.9
--- NOTE | 2018-02-09 03:44 | DS ---
Date of Discharge: 02/08/2018 Admitting Diagnoses: 1.Sepsis. 2.Right lower lobe alveolitis. 3.Acute kidney injury. 4.Acute cystitis without hematuria. 5.Intractable nausea and vomiting, non-cyclical. 6.Diabetes mellitus type 2, insulin requiring, with hyperglycemia. 7.Essential hypertension, upon admission patient hypotensive. 8.Mixed hyperlipidemia. 9.Hypothyroidism. Discharge Diagnoses: 1.Sepsis, improved, secondary to Escherichia coli. 2.Acute cystitis without hematuria, secondary to Escherichia coli. 3.Escherichia coli bacteremia. 4.Right lower lobe alveolitis. 5.Acute kidney injury, resolved. 6.Intractable nausea and vomiting, non-cyclical, resolved. 7.Diabetes mellitus type 2, insulin requiring, with hyperglycemia. 8.Severe protein-calorie malnutrition. Albumin 2.2. 9.Essential hypertension. 10.Mixed hyperlipidemia, on statin. 11.Hypothyroidism, on Synthroid. Hospital Course: The patient is an 82-year-old female who was admitted to the hospital for sepsis. She was found to have UTI. White count was 26,000. She was tachycardic, tachypneic, and afebrile. The patient was started on IV antibiotics. She responded well to treatment. Her blood cultures and urine culture grew out E coli which was sensitive to cefepime. Patient's imaging studies did show so me mild alveolitis. The patient did well throughout the course of the hospital stay. She remained a febrile, her sepsis improved, her white count trended down. She was able to ambulate. She was channing ating her diet. The patient was then cleared for discharge. Followup: To follow up with her primary care physician in 2-3 days. Return to ER for worsening cond ition. Diet: Diabetic diet. Activity: Fall precautions. Total time spent discharging the patient was 35 minutes. Medications: As per medication reconciliation list. Finish off the course of cefuroxime for 12 more days, for total of 2 weeks. Physical Examination: General: Awake, alert, oriented, elderly female, in no acute distress. CV: S1, S2. No murmurs. Respiratory: Moving air well bilaterally. Abdomen: Abdomen is soft, nontender, nondistended. Positive bowel sounds. Extremities: No clubbing, cyanosis, or edema. Neurologic: Nonfocal. SA/MODL Voice ID: [id number] Report ID: [id number]
== END 2018-02-08 11:04 | disposition home or self-care (01) | DRG 871 ==
LOC: ER 08:48 → ERHOLD 11:19 → 2ND 12:35
PROVIDERS: ADMIT Family Medicine; ATTEND Family Medicine
DX: A41.51 Sepsis due to Escherichia coli [E. coli] (principal); E43 Unspecified severe protein-calorie malnutrition; N30.00 Acute cystitis without hematuria; N17.9 Acute kidney failure, unspecified; J84.112 Idiopathic pulmonary fibrosis; R11.2 Nausea with vomiting, unspecified; E11.65 Type 2 diabetes mellitus with hyperglycemia; Z68.24 Body mass index [BMI] 24.0-24.9, adult; I10 Essential (primary) hypertension; E78.2 Mixed hyperlipidemia; E03.9 Hypothyroidism, unspecified; Z96.652 Presence of left artificial knee joint
CPT/HCPCS: 36415; 51702; 71045; 71250; 74176; 80048; 80053; 80076; 80202; 81001; 81003; 82150; 82550; 82553; 82805; 82962; 83605; 83690; 83735; 83880; 84145; 84484; 85025; 85610; 86140; 87040; 87077; 87086; 87088; 87186; 87205; 87804; 93005; 94760; 96361; 96365; 96375; 97161; 99285; J0456; J0692; J0694; J0696; J2405; J3370; J7030

== ENCOUNTER 2019-12-11 16:13 | Inpatient (IN) | payer OTHER ==
--- OUTSIDE RECORDS SUMMARY | 2019-12-11 16:16 | XMS REPORT | Continuity of Care Document ---
:1935 Author Organization [facility] t Address [address] [place] [address] [address] [place] [address] Care Team Providers Name Role Phone Unavailable Unavailable Unavailable Payers Payer Name Policy Type Policy Number Effective Date Expiration Date S ource Problems This patient has no known problems. Allergies, Adverse Reactions, Alerts Allergy Allergy Status Severity Reaction(s) Onset Inactive Treating Comm ents Source Name Type Date Date Clinician No Known DA Active U 2017-02 [facility] Allergie 1-14 Clear s 00:00: Bunn 00 [facility] No Known DA Active U 2010- [facility] Allergie 2-19 Clear s 00:00: Bunn 00 [facility] Medications This patient has no known medications. Procedures This patient has no known procedures. Results This patient has no known results.
[2019-12-11 17:00] LABS: Absolute Lymphocytes (CBC) 0.7 K/uL (0.7-4.9); Basophils % 0.8 % (0-1.3); Hematocrit 29.1 % (36.0-45.0); Lymphocytes % 6.1 % (15.3-44.8); RBC Red Blood Cell Count 3.33 M/uL (3.86-4.86)
[2019-12-11 17:07] LABS: Protime INR 1.2
[2019-12-11 17:25] LABS: ALT/SGPT 50 U/L (12-78); AST/SGOT 47 U/L (15-37); Albumin 2.5 g/dL (3.4-5.0); Alkaline Phosphatase 118 U/L (45-117); BUN Blood Urea Nitrogen 13 mg/dL (7-18); Bicarbonate 19 mmol/L (21-32); Bilirubin Direct 0.3 mg/dL (0-0.2); Bilirubin Total 0.7 mg/dL (0.2-1.0); Glucose Level 223 mg/dL (74-106); Magnesium 2.1 mg/dL (1.8-2.4); NT PRO-BNP 604 pg/mL (<450); Potassium 4.6 mmol/L (3.5-5.1); Protein, Total 7.1 g/dL (6.4-8.2); Sodium Level 131 mmol/L (136-145); Troponin (Emerg Dept Use Only) < 0.02 ng/mL (0.0-0.045)
--- NOTE | 2019-12-11 18:26 | RAD REPORT ---
EXAM DESCRIPTION: CT - Abdomen Pelvis W Contrast - 12/11/2019 5:54 pm CLINICAL HISTORY: Diarrhea;Abd pain COMPARISON: No comparisonsChest Single View dated 12/11/2019 TECHNIQUE: Biphasic, helical CT imaging of the abdomen and pelvis was performed following 100 ml non -ionic IV contrast. No oral contrast. All CT scans are performed using dose optimization technique as appropriate and may include automated exposure control or mA/KV adjustment according to patient size. FINDINGS: Significant ground-glass opacification present in the right lower lobe and right middle lo be. There ground-glass opacities present at the base of the left lower lobe as well. No pleural effus ion. No pericardial effusion. The liver, spleen, and pancreas show no suspicious findings. Cholecystectomy clips are present. No bi liary tree dilatation. Symmetric renal function is seen with no hydronephrosis or suspicious renal mass. No pyelonephritis o r acute parenchymal process. Patient has normal variant extrarenal pelves. No urinary bladder abnorma lity. No adrenal abnormalities. Uterus is absent. No ovarian abnormality seen. Small hiatal hernia is present. There are numerous surgical clips at the GE junction. No gastric dila tation or wall thickening. No dilated small bowel. Several small bowel loops are fluid-filled. Freedman of small bowel old floor the pelvis are mildly prominent. No free air or pneumatosis. Trace amount of free fluid is present. No free air, free fluid or inflamm atory stranding. No hernia, mass or bulky lymphadenopathy. No suspicious bony findings. IMPRESSION: Left greater than right bilateral pneumonia changes are present at the lung bases. The a irspace pattern and peripheral distribution raise the possibility COVID pneumonia in the current clin ical environment. Correlation is needed with risk factors, clinical concern and any testing performe d. A few prominent distal small bowel loops are present. Nonspecific enteritis is possible. Trace amount of ascites seen. No acute finding. Uterus is absent. No acute CIVIL RIGHTS REPRESENTATIVE process.
--- NOTE | 2019-12-11 18:31 | RAD REPORT ---
EXAM DESCRIPTION: RAD - Chest Single View - 12/11/2019 5:47 pm CLINICAL HISTORY: SOB COMPARISON: Portable January 2018 TECHNIQUE: AP portable chest image was obtained 12/11/2019 5:47 pm . FINDINGS: Focal opacification is present in the right upper lobe. Moderate bilateral lung base airsp irene opacification present. Trachea is midline. Heart is upper normal. No vascular engorgement. Failur e and volume overload are not suspected. No measurable pleural effusion and no pneumothorax. No acute bony abnormality seen. No acute aortic findings suspected. IMPRESSION: Bilateral pneumonia. Given the lung base pattern, a COVID-19 pneumonia should be conside red given the current clinical environment.
--- NOTE | 2019-12-11 19:17 | EDPHYS ---
Physician Documentation [facility] Name: Rk Ram Age: 84 yrs Sex: Female : 1935 Arrival Date: 12/11/2019 Time: 16:15 Bed 19 Private MD: ED Physician Son Vasquez HPI: 12/10 16:59 This 84 yrs old Female presents to ER via Wheelchair with complaints of pm1 Diarrhea, Abdominal Pain. 16:59 The patient presents to the emergency department with diarrhea, abdominal pain, of the pm1 right upper quadrant and left upper quadrant. Onset: The symptoms/episode began/occurred 3 week(s) ago. Possible causes: unknown. The symptoms are aggravated by nothing. The symptoms are alleviated by nothing. Associated signs and symptoms: Pertinent positives: SOB onset today with light exertion. Severity of symptoms: in the emergency department the symptoms are worse. The patient has been recently seen by a physician: the patient's primary care provider, with similar presenting complaints, and apparently given a diagnosis of spastic colon disease and prescribed medications for it on Thrusday. Patient with diarrhea for the past three weeks daily. Patient has a history of IBS but has not had diarrhea like this in the past. She saw her PCP 3 days ago and was prescribed medications to help with a diagnosis of spastic colon disease. The medications have not helped and she started having shortness of breath today. Historical: - Allergies: 16:33 No Known Allergies; ss - PMHx: 16:33 Hypothyroidism; Hyperlipidemia; GERD; Diabetes - IDDM; Osteoporosis; ss - PSHx: 16:33 Cholecystectomy; Appendectomy; Hysterectomy; ss - Immunization history:: Adult Immunizations up to date. - Social history:: Smoking status: Patient denies any tobacco usage or history of. ROS: 16:59 Eyes: Negative for injury, pain, redness, and discharge, ENT: Negative for injury, pm1 pain, and discharge, Neck: Negative for injury, pain, and swelling, Cardiovascular: Negative for chest pain, palpitations, and edema. 16:59 Back: Negative for injury and pain, MS/Extremity: Negative for injury and deformity, Skin: Negative for injury, rash, and discoloration. 16:59 Constitutional: Positive for fatigue, poor PO intake, Negative for fever. 16:59 Respiratory: Positive for shortness of breath, Negative for cough. 16:59 Abdomen/GI: Positive for abdominal pain, diarrhea, of the right upper quadrant and left upper quadrant, Negative for nausea and vomiting. 16:59 Neuro: Positive for generalized weakness, Negative for dizziness, headache. Exam: 16:59 Head/Face: Normocephalic, atraumatic. Chest/axilla: Normal chest wall appearance and pm1 motion. Nontender with no deformity. No lesions are appreciated. 16:59 Back: No spinal tenderness. No costovertebral tenderness. Full range of motion. Skin: Warm, dry with normal turgor. Normal color with no rashes, no lesions, and no evidence of cellulitis. MS/ Extremity: Pulses equal, no cyanosis. Neurovascular intact. Full, normal range of motion. 16:59 Constitutional: The patient appears in no acute distress, alert, awake, non-toxic, well developed, well hydrated, well groomed, well nourished, uncomfortable. 16:59 Abdomen/GI: Inspection: abdomen appears normal, Palpation: soft, in all quadrants, mild abdominal tenderness, in the right upper quadrant and left upper quadrant. 16:59 Neuro: Orientation: is normal, Mentation: is normal, Motor: is normal, moves all fours. Vital Signs: 16:29 BP 127 / 52; Pulse 67; Resp 24; Temp 98.3(TE); Pulse Ox 95% ; Weight 55.34 kg; Height 5 ss ft. 1 in. (154.94 cm); Pain 10/10; 17:48 BP 131 / 51; Pulse 66; Resp 18; Pulse Ox 97% on R/A; ph 18:48 BP 120 / 48; Pulse 70; Resp 18; Pulse Ox 94% on R/A; ph 21:02 BP 135 / 53; Pulse 65; Resp 18; Pulse Ox 95% on R/A; mg2 16:29 Body Mass Index 23.05 (55.34 kg, 154.94 cm) ss MDM: 16:29 Patient medically screened. pm1 18:52 Data reviewed: vital signs. Data interpreted: Pulse oximetry: on room air is 94 %. pm1 Interpretation: normal. Counseling: I had a detailed discussion with the patient and/or guardian regarding: the historical points, exam findings, and any diagnostic results supporting the discharge/admit diagnosis, lab results, radiology results, the need for further work-up and treatment in the hospital. 12/10 16:40 Order name: Basic Metabolic Panel; Complete Time: 17:32 pm1 12/10 16:40 Order name: CBC with Diff; Complete Time: 17:13 pm1 12/10 16:40 Order name: LFT's; Complete Time: 17:32 pm1 12/10 16:40 Order name: Magnesium; Complete Time: 17:32 pm1 12/10 16:40 Order name: NT PRO-BNP; Complete Time: 17:32 pm1 12/10 16:40 Order name: PT-INR; Complete Time: 17:13 pm1 12/10 16:40 Order name: Troponin (emerg Dept Use Only); Complete Time: 17:32 pm1 12/10 17:13 Order name: Flu pm1 12/10 17:14 Order name: Influenza Screen (A ; Complete Time: 20:08 EDMS 12/10 18:58 Order name: Blood Culture Adult (2) ss 12/10 18:58 Order name: Procalcitonin; Complete Time: 20:08 ss 12/10 20:39 Order name: SARS-COV-2 RT PCR; Complete Time: 20:51 EDMS 12/10 20:57 Order name: CRP; Complete Time: 21:18 la1 12/10 16:40 Order name: XRAY Chest (1 view); Complete Time: 18:43 pm1 12/10 16:40 Order name: EKG; Complete Time: 16:41 pm1 12/10 16:40 Order name: Cardiac monitoring; Complete Time: 17:47 pm1 12/10 16:40 Order name: EKG - Nurse/Tech; Complete Time: 18:31 pm1 12/10 16:40 Order name: IV Saline Lock; Complete Time: 17:47 pm1 12/10 16:40 Order name: Labs collected and sent; Complete Time: 17:47 pm1 12/10 16:40 Order name: O2 Per Protocol; Complete Time: 17:47 pm1 12/10 16:40 Order name: O2 Sat Monitoring; Complete Time: 17:47 pm1 12/10 16:40 Order name: CT Abd/Pelvis - IV Contrast Only; Complete Time: 18:43 pm1 Administered Medications: 16:59 Drug: Zofran (Ondansetron) 4 mg Route: IVP; Site: right antecubital; zb 17:47 Follow up: Response: No adverse reaction ph 16:59 Drug: fentaNYL (PF) 25 mcg Route: IVP; Site: right antecubital; zb 17:47 Follow up: Response: No adverse reaction ph 17:00 Drug: NS 0.9% 500 ml Route: IV; Rate: bolus; Site: right antecubital; zb 17:47 Follow up: Response: No adverse reaction; IV Status: Completed infusion ph 21:02 Drug: NS 0.9% 500 ml Route: IV; Rate: bolus; Site: right antecubital; mg2 21:02 Follow up: Response: No adverse reaction; IV Status: Infusion continued upon admission mg2 Disposition: 12/11 06:39 Co-signature as Attending Physician, Son Vasquez MD I agree with the assessment and kdr plan of care. Disposition: 12/11/19 19:17 Hospitalization ordered by Gail Boyle for Observation. Preliminary diagnosis are Pneumonia, unspecified organism - covid, Diarrhea, unspecified, Weakness, Shortness of breath. - Bed requested for Intensive Care Unit. - Status is Observation. mg2 - Condition is Stable. - Problem is new. - Symptoms have improved. Signatures: Dispatcher [employer] EDAZ Son Vasquez MD MD [facility] Johana Nieves RN RN ss Guilherme Gomez, SUPPORT TEAM MEMBER-C SUPPORT TEAM MEMBER-Cla1 Sera Weiss RN RN cg Jaden Penny, VERONICA REHABILITATION ENGINEER pm1 Ever Gray RN RN mg2 Georgia Osorio RN RN zb Hall, Patricia RN ph Corrections: (The following items were deleted from the chart) 12/10 19:32 17:14 CORONAVIRUS+MR.LAB.BRZ ordered. EDAZ EDMS 21:00 19:17 Hospitalization Ordered by Gail Boyle MD for Observation. Preliminary pm1 diagnosis is Pneumonia, unspecified organism - possible covidDiarrhea, unspecified; Weakness; Shortness of breath. Bed requested for Telemetry/MedSurg (observation). Status is Observation. Condition is Stable. Problem is new. Symptoms have improved. pm1 21:00 21:00 12/11/2019 19:17 Hospitalization Ordered by Gail Boyle MD for Observation. cg Preliminary diagnosis is Pneumonia, unspecified organism - covidDiarrhea, unspecified; Weakness; Shortness of breath. Bed requested for Telemetry/MedSurg (observation). Status is Observation. Condition is Stable. Problem is new. Symptoms have improved. pm1 21:25 21:00 12/11/2019 19:17 Hospitalization Ordered by Gail Boyle MD for Observation. mg2 Preliminary diagnosis is Pneumonia, unspecified organism - possible covidDiarrhea, unspecified; Weakness; Shortness of breath. Bed requested for Intensive Care Unit. Status is Observation. Condition is Stable. Problem is new. Symptoms have improved. cg
--- NOTE | 2019-12-11 19:17 | ER ---
Nurse's Notes [facility] Name: Rk Ram Age: 84 yrs Sex: Female : 1935 Arrival Date: 12/11/2019 Time: 16:15 Bed 19 Private MD: Diagnosis: Diarrhea, unspecified;Weakness;Pneumonia, unspecified organism-covid;Shortness of breath Presentation: 12/10 16:29 Chief complaint: Patient states: upper abd pain and diarrhea that began 3 weeks ago. ss SOB that began today. Coronavirus screen: Client denies travel out of the [place] in the last 14 days. Coronavirus screen: diarrhea, shortness of breath, Client presents with at least one sign or symptom that may indicate coronavirus-19. Standard/surgical mask placed on the client. Provider contacted for isolation considerations. Ebola Screen: Patient denies exposure to infectious person. Patient denies travel to an Ebola-affected area in the 21 days before illness onset. Initial Sepsis Screen: Does the patient meet any 2 criteria? RR > 20 per min. Does the patient have a suspected source of infection? No. Patient's initial sepsis screen is negative. Risk Assessment: Do you want to hurt yourself or someone else? Patient reports no desire to harm self or others. Onset of symptoms was November 2019. 16:29 Method Of Arrival: Wheelchair ss 16:29 Acuity: BRENT 3 ss Historical: - Allergies: 16:33 No Known Allergies; ss - PMHx: 16:33 Hypothyroidism; Hyperlipidemia; GERD; Diabetes - IDDM; Osteoporosis; ss - PSHx: 16:33 Cholecystectomy; Appendectomy; Hysterectomy; ss - Immunization history:: Adult Immunizations up to date. - Social history:: Smoking status: Patient denies any tobacco usage or history of. Screenin:46 Abuse screen: Denies threats or abuse. Denies injuries from another. Nutritional ph screening: No deficits noted. Tuberculosis screening: No symptoms or risk factors identified. Fall Risk None identified. Assessment: 16:33 General: Appears in no apparent distress. comfortable, slender, well groomed, Behavior ph is calm, cooperative, appropriate for age, Reports pt reports weakness Denies fever. Pain: Complains of pain in abdomen Pain does not radiate. Pain currently is 10 out of 10 on a pain scale. Quality of pain is described as aching, Alleviated by Aggravated by eating, drinking, Noted to be. Neuro: No deficits noted. Level of Consciousness is awake, alert, obeys commands, Oriented to person, place, time, situation. Cardiovascular: Reports shortness of breath. Respiratory: Reports shortness of breath Airway is patent. GI: Reports diarrhea, nausea. : No signs and/or symptoms were reported regarding the genitourinary system. EENT: No signs and/or symptoms were reported regarding the EENT system. Derm: Skin is intact, is thin. Musculoskeletal: No signs and/or symptoms reported regarding the musculoskeletal system. Circulation, motion, and sensation intact. 17:45 Reassessment: Patient appears in no apparent distress at this time. Patient and/or ph family updated on plan of care and expected duration. Pain level reassessed. Patient is alert, oriented x 3, equal unlabored respirations, skin warm/dry/pink. Pt taken to CT via stretcher. 18:48 Reassessment: Patient appears in no apparent distress at this time. Patient and/or ph family updated on plan of care and expected duration. Pain level reassessed. Patient is alert, oriented x 3, equal unlabored respirations, skin warm/dry/pink. ERP at bedside to speak w/ pt and family about test results. 20:08 Reassessment: patient aware about the admission. awaiting for covid result. mg2 20:36 Reassessment: Guilherme RODRIGUES and Aashish Zamora notified pt COVID swab is Positive, sg awaiting admission orders and a bed assignment at this time. Vital Signs: 16:29 BP 127 / 52; Pulse 67; Resp 24; Temp 98.3(TE); Pulse Ox 95% ; Weight 55.34 kg; Height 5 ss ft. 1 in. (154.94 cm); Pain 10/10; 17:48 BP 131 / 51; Pulse 66; Resp 18; Pulse Ox 97% on R/A; ph 18:48 BP 120 / 48; Pulse 70; Resp 18; Pulse Ox 94% on R/A; ph 21:02 BP 135 / 53; Pulse 65; Resp 18; Pulse Ox 95% on R/A; mg2 16:29 Body Mass Index 23.05 (55.34 kg, 154.94 cm) ED Course: 16:15 Patient arrived in ED. as 16:28 Jaden Penny NP is PHCP. pm1 16:28 Son Vasquez MD is Attending Physician. pm1 16:30 Georgia Osorio, SANJUANA is Primary Nurse. zb 16:31 Triage completed. ss 16:31 Rossy Santana, RN is Primary Nurse. ph 16:33 Arm band placed on right wrist. ss 16:55 Initial lab(s) drawn, by me, sent to lab. Inserted saline lock: 22 gauge in right zb antecubital area, using aseptic technique. Blood collected. 17:46 Patient has correct armband on for positive identification. Bed in low position. Call ph light in reach. Side rails up X2. Pulse ox on. NIBP on. Door closed. Noise minimized. Warm blanket given. 17:47 XRAY Chest (1 view) In Process Unspecified. EDMS 17:54 CT Abd/Pelvis - IV Contrast Only In Process Unspecified. EDMS 19:16 Gail Boyle MD is Hospitalizing Provider. pm1 20:11 Primary Nurse role handed off by Rossy Santana, SANJUANA sg 20:33 Ever Gray, SANJUANA is Primary Nurse. mg2 21:00 Inserted saline lock: 20 gauge in left hand, using aseptic technique. mg2 21:02 No provider procedures requiring assistance completed. Patient admitted, IV remains in mg2 place. Administered Medications: 16:59 Drug: Zofran (Ondansetron) 4 mg Route: IVP; Site: right antecubital; zb 17:47 Follow up: Response: No adverse reaction ph 16:59 Drug: fentaNYL (PF) 25 mcg Route: IVP; Site: right antecubital; zb 17:47 Follow up: Response: No adverse reaction ph 17:00 Drug: NS 0.9% 500 ml Route: IV; Rate: bolus; Site: right antecubital; zb 17:47 Follow up: Response: No adverse reaction; IV Status: Completed infusion ph 21:02 Drug: NS 0.9% 500 ml Route: IV; Rate: bolus; Site: right antecubital; mg2 21:02 Follow up: Response: No adverse reaction; IV Status: Infusion continued upon admission mg2 Outcome: 19:17 Decision to Hospitalize by Provider. pm1 21:07 Admitted to ICU accompanied by tech, via wheelchair, room 1, with chart, [place] [facility] [place] SANJUANA Stallworth 21:07 Condition: stable 21:07 Instructed on the need for admit, Demonstrated understanding of instructions. 21:25 Patient left the ED. mg2 Signatures: Dispatcher [employer] EDMS Bret Smith, RN Jessica Cornell Shelby, RN RN Rossy Santana RN RN Jaden Penny, SIDE SAWYER SIDE SAWYER pm1 Ever Gray RN RN [facility] [place] Osorio RN RN zb Corrections: (The following items were deleted from the chart) 17:02 16:33 Pain: Complains of pain in abdomen ph zb 17:02 16:33 GI: Reports diarrhea, ph zb
--- NOTE | 2019-12-11 21:16 | P.HP ---
Certification for Inpatient Patient admitted to: Observation With expected LOS: <2 Midnights Patient will require the following post-hospital care: None Practitioner: I am a practitioner with admitting privileges, knowledge of patient current condition, hospital course, and medical plan of care. Services: Services provided to patient in accordance with Admission requirements found in Title 42 Section 412.3 of the Code of Federal Regulations Patient History Date of Service: 12/11/19 Primary Care Provider: Dr. Matamoros Reason for admission: COVID Pnemonia History of Present Illness: 84-year-old female with history of diabetes mellitus type 2, hypertension, hyperlipidemia, hypothyroidism presents emergency department for diarrhea and shortness of breath. Patient reports she has had diarrhea for approximately the last 3 weeks but became short of breath starting today. Patient lives in her at home, does not frequently leave the house. Patient's workup in the emergency department revealed bilateral pneumonia suggestive of COVID-19. Labs remarkable for mild elevation white blood cell count 11.8, mild hyponatremia sodium 131, hyperglycemia blood sugar 223 and elevated BNP at 604. Patient had CT abdomen pelvis which showed possible enteritis pattern. Patient appears clinically dehydrated. COVID test presumptive positive ED provider wishes to admit patient for further evaluation and management. When I saw the patient in the emergency department she is awake, alert, oriented x3. Patient states she feels very weak, continues to have diarrhea, denies blood or mucus in stool. Patient also reports feeling subjectively short of breath. Room air saturations 94%. Allergies No Known Allergies Allergy (Verified 02/05/18 14:39) Home Medications: Amlodipine [Norvasc*] 5 mg PO DAILY 02/05/18 Calcium Carbonate/Vitamin D3 [Calcium 500-Vit D3 400 Tablet] 1 each PO DAILY 02/05/18 Hydrocodone 10/APAP 325 [[place] 10/325*] 1 tab PO Q6H PRN 02/05/18 Ibandronate Sodium [Boniva] 3 mg IV SEECOM 02/05/18 Insulin Glargine,Hum.rec.anlog [Tomary Cason] 40 unit SQ DAILY WITH BREAKFAST 02/05/18 Labetalol HCl [Trandate] 200 mg PO BID 02/05/18 Levothyroxine Sodium 50 mcg PO [id number] 02/05/18 Mirtazapine 15 mg PO BEDTIME 02/05/18 Pantoprazole [Protonix Tab*] 40 mg PO DAILY 02/05/18 Rosuvastatin [Crestor*] 20 mg PO DAILY 02/05/18 Spironolactone 25 mg PO DAILY 02/05/18 Cefuroxime Axetil [Cefuroxime] 500 mg PO BID #24 tab 02/08/18 - Past Medical/Surgical History Diabetic: No -: Diabetes mellitus type 2 -: Hypertension -: Hyperlipidemia -: Hypothyroidism -: Knee Surgery 12/27 -: Hysterectomy -: Appendectomy Psychosocial/ Personal History: Patient lives the . - Family History Family History: Reviewed- Non-Contributory - Social History Smoking Status: Never smoker Alcohol use: No CD- Drugs: No Caffeine use: No Place of Residence: Home Review of Systems 10-point ROS is otherwise unremarkable Respiratory: Cough, Shortness of Breath Gastrointestinal: Nausea, Abdominal Pain, Diarrhea Physical Examination - Physical Exam General: Alert, In no apparent distress, Oriented x3 HEENT: Atraumatic, Normocephalic, Other (Mucous membranes dry) Neck: Supple Respiratory: Diminished (Bilaterally) Cardiovascular: Normal pulses, Regular rate/rhythm, Normal S1 S2 Capillary refill: <2 Seconds Gastrointestinal: Normal bowel sounds, Soft and benign, No tenderness, No masses, No rebound Musculoskeletal: No contractures, No erythema, No tenderness Integumentary: No significant lesion, No tenderness/swelling, No erythema Neurological: Normal speech, Normal strength at 5/5 x4 extr, Normal tone, Sensation intact - Studies Laboratory Data (last 24 hrs) 12/11/19 16:55: PT 14.1 H, INR 1.20 12/11/19 16:55: WBC 11.8 H, Hgb 10.2 L, Hct 29.1 L, Plt Count 436 H 12/11/19 16:55: Sodium 131 L, Potassium 4.6, BUN 13, Creatinine 1.11, Glucose 223 H, Magnesium 2.1, Total Bilirubin 0.7, AST 47 H, ALT 50, Alkaline Phosphatase 118 H Microbiology Data (last 24 hrs): 12/11/19 18:30 Nasopharnyx Influenza Type A Antigen Screen - Final 12/11/19 18:30 Nasopharnyx Influenza Type B Antigen Screen - Final Assessment and Plan - Plan Assessment Bilateral Viral Pneumonia-COVID 19 Diarrhea and abdominal pain secondary to viral enteritis Dehydration with mild hyponatremia Diabetes mellitus type 2 Hypertension Hyperlipidemia Hypothyroidism Plan Bilateral Viral Pneumonia-COVID 19: Patient with shortness of breath that began today. Monitor patient on telemetry floor, oxygen supplementation as necessary. Pulmonology consult in place, daily room air saturations. Continue with IV steroid therapy, supplementation. DVT prophylaxis Lovenox 40 mg subcutaneous once daily. Appreciate further input from pulmonology. If patient remains stable overnight with saturations greater than 94% on room air. Could possibly be discharged as early as tomorrow. Diarrhea and abdominal pain secondary to viral enteritis: Continue gentle hydration with IV fluids, patient appears dehydrated clinically. Will obtain stool studies as well. Dehydration with mild hyponatremia: Continue IV fluids. Diabetes mellitus type 2: A.c. HS Accu-Cheks, sliding scale insulin therapy. Hypertension: Home medications continued Hyperlipidemia: Home medications continued Hypothyroidism: Home medications continued Discharge Plan: Home Plan to discharge in: 24 Hours - Advance Directives Does patient have a Living Will: No Does patient have a Durable POA for Healthcare: No - Code Status/Comfort Care Code Status Assessed: Yes (Full code) Critical Care: No Time Spent Managing Pts Care (In Minutes): 55
[2019-12-11] MEDS: LABETALOL HCL 100 MG TAB PO SCH (21:18)
[2019-12-11] MEDS ORDERED: ONDANSETRON 4 MG/2 ML VIAL IV PRN (21:18)
[2019-12-11] MEDS ORDERED: ACETAMINOPHEN 500 MG TAB PO PRN (21:18)
[2019-12-11] MEDS ORDERED: NA CHLORIDE 0.9% 1,000 ML IV SCH (21:18)
[2019-12-11] MEDS: INSULIN -REGULAR HUMAN 50 UNIT/0.5 ML ML SQ SCH (21:18)
[2019-12-11] MEDS ORDERED: NA CHLORIDE 0.9% 500 ML ONE (21:23)
[2019-12-11] MEDS ORDERED: NA CHLORIDE 0.9% 1,000 ML ONE (21:49)
[2019-12-11] MEDS ORDERED: HYDROCODONE/APAP 5/325 MG TAB PO PRN (22:34)
[2019-12-11] MEDS: ROSUVASTATIN 10 MG TAB PO SCH (22:35)
[2019-12-11] MEDS: MELATONIN 5 MG TABLET PO PRN (22:35)
[2019-12-11] MEDS: ASCORBIC ACID 500 MG TABLET PO SCH (22:36)
[2019-12-11] MEDS ORDERED: MELATONIN 5 MG TABLET PO ONE (22:47)
[2019-12-11] MEDS ORDERED: HYDROCODONE/APAP 5/325 MG TAB ONE (22:47)
[2019-12-12] MEDS ORDERED: METHYLPREDNISOLONE 40 MG INJ IV SCH (01:00)
[2019-12-12 06:04] LABS: Absolute Lymphocytes (CBC) 0.5 K/uL (0.7-4.9); Basophils % 0.2 % (0-1.3); Hematocrit 29.7 % (36.0-45.0); Lymphocytes % 4.3 % (15.3-44.8); RBC Red Blood Cell Count 3.35 M/uL (3.86-4.86)
[2019-12-12] MEDS: LEVOTHYROXINE SOD 0.05 MG TABLET PO SCH (06:17)
[2019-12-12] MEDS: PANTOPRAZOLE 40MG TABLET PO SCH (06:18)
[2019-12-12 06:28] LABS: Magnesium 2.1 mg/dL (1.8-2.4); Potassium 4.9 mmol/L (3.5-5.1)
[2019-12-12] MEDS: INSULIN -REGULAR HUMAN 50 UNIT/0.5 ML ML SQ SCH ×4 (07:30→21:02)
[2019-12-12 07:34] LABS: Blood Morphology Comment NOT SEEN (NOT SEEN); Platelet Estimate INCR
[2019-12-12] MEDS: METHYLPREDNISOLONE 40 MG INJ IV SCH ×2 (08:04→21:01)
[2019-12-12] MEDS: ASCORBIC ACID 500 MG TABLET PO SCH ×3 (08:06→21:01)
[2019-12-12] MEDS: AMLODIPINE 5 MG TAB PO SCH (08:06)
[2019-12-12] MEDS: VALSARTAN 160 MG TAB PO SCH (08:06)
[2019-12-12] MEDS: LABETALOL HCL 100 MG TAB PO SCH ×2 (08:06→21:01)
[2019-12-12] MEDS: VITAMIN D 1000 UNIT TAB PO SCH (08:06)
[2019-12-12] MEDS: THIAMINE 200 MG/2 ML INJ IVP SCH (08:08)
[2019-12-12] MEDS: SPIRONOLACTONE 25 MG TABLET PO SCH (08:08)
--- NOTE | 2019-12-12 08:09 | P.CNS ---
Date of Consult: 12/12/19 Reason for Consult: Pneumonia due to coronal wire S Primary Care Provider: Dr. Matamoros Chief Complaint: COVID Pnemonia History of Present Illness: Patient is 84 years of age with a multiple medical problems admitted from the emergency room with shortness of breath some diarrhea mildly hypoxic she lives at home with her found to have bilateral pneumonia consistent with the maria virus infection she is doing fine really little weak not eating and drinking much Allergies No Known Allergies Allergy (Verified 12/11/19 23:39) Home Medications: Amlodipine [Norvasc*] 5 mg PO DAILY 02/05/18 Calcium Carbonate/Vitamin D3 [Calcium 500-Vit D3 400 Tablet] 1 tab PO DAILY 02/05/18 Insulin Glargine,Hum.rec.anlog [Toujeo Solostar] 26 unit SQ DAILY WITH BREAKFAST 02/05/18 Labetalol HCl [Trandate] 200 mg PO BID 02/05/18 Levothyroxine Sodium 50 mcg PO [id number] 02/05/18 Mirtazapine 15 mg PO BEDTIME 02/05/18 Pantoprazole [Protonix Tab*] 40 mg PO DAILY 02/05/18 Rosuvastatin [Crestor*] 20 mg PO DAILY 02/05/18 Spironolactone 25 mg PO DAILY 02/05/18 Alendronate Sodium 1 tab PO EVERY 7TH DAY 12/11/19 Cholestyramine (with Sugar) [Questran Packet] 4 g PO BID 12/11/19 Dicyclomine [Bentyl*] 10 mg PO BID 12/11/19 Diphenox/Atropine [Lomotil] 1 tab PO QIDP PRN 12/11/19 Ergocalciferol (Vitamin D2) [Vitamin D 50,000 Unit Cap] 50,000 unit PO EVERY 7TH DAY 12/11/19 Insulin Lispro [Humalog Kwikpen U-100] 5 unit SQ BREAKFAST & LUNCH 12/11/19 Insulin Lispro [Humalog Kwikpen U-100] 6 unit SQ DAILY AT SUPPER 12/11/19 Trazodone [Desyrel*] 1 tab PO BEDTIME PRN PRN 12/11/19 Valsartan 320 mg PO DAILY 12/11/19 - Past Medical/Surgical History Diabetic: Yes -: Diabetes mellitus type 2 -: Hypertension -: Hyperlipidemia -: Hypothyroidism -: Knee Surgery 12/27 -: Hysterectomy -: Appendectomy Psychosocial/ Personal History: Patient lives the . - Social History Alcohol use: No CD- Drugs: No Caffeine use: No Place of Residence: Home Review of Systems 10-point ROS is otherwise unremarkable General: Weakness Respiratory: Shortness of Breath Physical Examination Temp Pulse Resp BP Pulse Ox 97.5 F 59 20 122/49 L 96 12/12/19 04:00 12/12/19 04:00 12/12/19 04:00 12/12/19 04:00 12/12/19 04:00 General: Alert, In no apparent distress, Oriented x3 Respiratory: Clear to auscultation bilaterally Cardiovascular: No edema, Normal S1 S2 Laboratory Data (last 24 hrs) 12/11/19 16:55: PT 14.1 H, INR 1.20 12/11/19 16:55: WBC 11.8 H, Hgb 10.2 L, Hct 29.1 L, Plt Count 436 H 12/11/19 16:55: Sodium 131 L, Potassium 4.6, BUN 13, Creatinine 1.11, Glucose 223 H, Magnesium 2.1, Total Bilirubin 0.7, AST 47 H, ALT 50, Alkaline Phosphatase 118 H - Problems (1) Pneumonia due to human coronavirus Current Visit: Yes Status: Acute Plan: Patient is 84 years of age admitted with pneumonia due to maria virus she is currently doing much better evaluate for home oxygen plan for discharge on prednisone 20 mg twice a day for 1 week then 10 mg twice a day follow-up telephone visit with me next week chemistries reviewed no evidence of sepsis vital signs all stable CRP elevated CT reviewed
[2019-12-12] MEDS ORDERED: ENOXAPARIN 30 MG/0.3 ML SQ SCH (09:00)
[2019-12-12] MEDS ORDERED: ENOXAPARIN 40 MG/0.4 ML SQ SCH ×2 (09:00)
--- NOTE | 2019-12-12 17:14 | P.PN ---
Subjective Date of Service: 12/12/19 Patient is more tachypneic moving around. Her room air oxygen saturations are 92%. She has had persistent diarrhea for the last week. Most patients with severe GI symptoms especially diarrhea tend to develop significant pulmonary issues. Her oxygen saturation has dropped significantly. She has significant infiltrates on her chest x-ray in the right upper lobe and right lower lobe as well as a left lower lobe infiltrate. At her age my concern would be she could deteriorate over the next 48-72 hr. If she maintains stable O2 sats and I will discharge her in the morning. Physical Examination - Vital Signs Temperature: 98.2 F Blood Pressure: 132/51 Pulse: 64 Respirations: 18 Pulse Ox (%): 92 - Studies Laboratory Data (last 24 hrs) 12/11/19 16:55: PT 14.1 H, INR 1.20 12/11/19 16:55: Sodium 131 L, Potassium 4.6, BUN 13, Creatinine 1.11, Glucose 223 H, Magnesium 2.1, Total Bilirubin 0.7, AST 47 H, ALT 50, Alkaline Phosphatase 118 H Microbiology Data (last 24 hrs): 12/11/19 18:30 Nasopharnyx Influenza Type A Antigen Screen - Final 12/11/19 18:30 Nasopharnyx Influenza Type B Antigen Screen - Final Assessment & Plan - Advance Directives Does patient have a Living Will: No Does patient have a Durable POA for Healthcare: No
[2019-12-12] MEDS: ROSUVASTATIN 10 MG TAB PO SCH (21:01)
[2019-12-12] MEDS: MELATONIN 5 MG TABLET PO PRN (21:04)
[2019-12-13 04:32] VITALS: BMI 23.8
[2019-12-13 05:20] LABS: Absolute Lymphocytes (CBC) 0.7 K/uL (0.7-4.9); Basophils % 0.1 % (0-1.3); Hematocrit 29.4 % (36.0-45.0); Lymphocytes % 5.3 % (15.3-44.8); RBC Red Blood Cell Count 3.33 M/uL (3.86-4.86)
[2019-12-13] MEDS: PANTOPRAZOLE 40MG TABLET PO SCH (05:32)
[2019-12-13] MEDS: LEVOTHYROXINE SOD 0.05 MG TABLET PO SCH (05:33)
[2019-12-13 06:27] LABS: C-Reactive Protein 77.2 mg/L (<3.00); Potassium 4.4 mmol/L (3.5-5.1)
[2019-12-13] MEDS: INSULIN -REGULAR HUMAN 50 UNIT/0.5 ML ML SQ SCH ×2 (07:34→11:20)
[2019-12-13] MEDS: METHYLPREDNISOLONE 40 MG INJ IV SCH (07:34)
[2019-12-13] MEDS: VALSARTAN 160 MG TAB PO SCH (07:35)
[2019-12-13] MEDS: VITAMIN D 1000 UNIT TAB PO SCH (07:35)
[2019-12-13] MEDS: THIAMINE 200 MG/2 ML INJ IVP SCH (07:35)
[2019-12-13] MEDS: LABETALOL HCL 100 MG TAB PO SCH (07:36)
[2019-12-13] MEDS: AMLODIPINE 5 MG TAB PO SCH (07:36)
[2019-12-13] MEDS: ASCORBIC ACID 500 MG TABLET PO SCH ×2 (07:36→12:35)
[2019-12-13] MEDS: SPIRONOLACTONE 25 MG TABLET PO SCH (07:37)
--- NOTE | 2019-12-13 08:34 | P.PN ---
Subjective Date of Service: 12/13/19 Primary Care Provider: Dr. Matamoros Chief Complaint: COVID Pnemonia Subjective: Improving (Patient is doing well room-air saturation satisfactory no complain) Review of Systems 10-point ROS is otherwise unremarkable Respiratory: Shortness of Breath Physical Examination - Vital Signs Temperature: 97.2 F Blood Pressure: 136/42 Pulse: 61 Respirations: 19 Pulse Ox (%): 93 Assessment & Plan - Problems (Diagnosis) (1) Pneumonia due to human coronavirus Current Visit: Yes Status: Acute Plan: Patient admitted pneumoniae you to maria virus plan for discharge home on prednisone Mouna mg twice a day for a week then 10 b.i.d. to follow up with me with a telephone visit in 2 weeks C-reactive protein is declining
[2019-12-13] MEDS ORDERED: ENOXAPARIN 40 MG/0.4 ML SQ SCH (09:00)
[2019-12-13] MEDS ORDERED: predniSONE 10 MG TAB PO SCH (09:00)
[2019-12-13 11:46] VITALS: O2SAT 95
[2019-12-13 12:01] VITALS: BP 136/54; TEMP 97.3
--- NOTE | 2019-12-13 12:14 | P.DS ---
Discharge Date: 12/13/19 Primary Care Provider: Dr. Matamoros Disposition: ROUTINE DISCHARGE Discharge Condition: GOOD Reason for Admission: COVID Pnemonia Brief History of Present Illness: Patient is an 84-year-old female with history of diabetes mellitus type 2, hypertension, hyperlipidemia, hypothyroidism presents emergency department for diarrhea and shortness of breath. Patient reports she has had diarrhea for approximately the last 3 weeks but became short of breath starting today. Patient lives in her at home, does not frequently leave the house. Patient's workup in the emergency department revealed bilateral pneumonia suggestive of COVID-19. Labs remarkable for mild elevation white blood cell count 11.8, mild hyponatremia sodium 131, hyperglycemia blood sugar 223 and elevated BNP at 604. Patient had CT abdomen pelvis which showed possible enteritis pattern. Patient appears clinically dehydrated. COVID test presumptive positive ED provider wishes to admit patient for further evaluation and management. When I saw the patient in the emergency department she is awake, alert, oriented x3. Patient states she feels very weak, continues to have diarrhea, denies blood or mucus in stool. Patient also reports feeling subjectively short of breath. Room air saturations 94%. Vital Signs/Physical Exam: Temp Pulse Resp BP Pulse Ox 97.3 F 69 13 136/54 L 92 12/13/19 12:00 12/13/19 12:00 12/13/19 12:00 12/13/19 12:00 12/13/19 12:00 Laboratory Data at Discharge: WBC 13.3 K/uL (4.3-10.9) H D 12/13/19 04:55 Hgb 10.1 g/dL (12.0-15.0) L 12/13/19 04:55 Hct 29.4 % (36.0-45.0) L 12/13/19 04:55 Plt Count 506 K/uL (152-406) H 12/13/19 04:55 PT 14.1 SECONDS (9.5-12.5) H 12/11/19 16:55 INR 1.20 12/11/19 16:55 Sodium 135 mmol/L (136-145) L 12/13/19 04:55 Potassium 4.4 mmol/L (3.5-5.1) 12/13/19 04:55 BUN 15 mg/dL (7-18) 12/13/19 04:55 Creatinine 0.93 mg/dL (0.55-1.3) 12/13/19 04:55 Glucose 255 mg/dL (74-106) H 12/13/19 04:55 Magnesium 2.1 mg/dL (1.8-2.4) 12/12/19 05:32 Total Bilirubin 0.7 mg/dL (0.2-1.0) 12/11/19 16:55 AST 47 U/L (15-37) H 12/11/19 16:55 ALT 50 U/L (12-78) 12/11/19 16:55 Alkaline Phosphatase 118 U/L (45-117) H 12/11/19 16:55 Home Medications: Amlodipine [Norvasc*] 5 mg PO DAILY 02/05/18 Calcium Carbonate/Vitamin D3 [Calcium 500-Vit D3 400 Tablet] 1 tab PO DAILY 02/05/18 Insulin Glargine,Hum.rec.anlog [Toufaisalo Solostar] 26 unit SQ DAILY WITH BREAKFAST 02/05/18 Labetalol HCl [Trandate] 200 mg PO BID 02/05/18 Levothyroxine Sodium 50 mcg PO [id number] 02/05/18 Mirtazapine 15 mg PO BEDTIME 02/05/18 Pantoprazole [Protonix Tab*] 40 mg PO DAILY 02/05/18 Rosuvastatin [Crestor*] 20 mg PO DAILY 02/05/18 Spironolactone 25 mg PO DAILY 02/05/18 Alendronate Sodium 1 tab PO EVERY 7TH DAY 12/11/19 Cholestyramine (with Sugar) [Questran Packet] 4 g PO BID 12/11/19 Dicyclomine [Bentyl*] 10 mg PO BID 12/11/19 Diphenox/Atropine [Lomotil*] 1 tab PO QIDP PRN 12/11/19 Ergocalciferol (Vitamin D2) [Vitamin D 50,000 Unit Cap] 50,000 unit PO EVERY 7TH DAY 12/11/19 Insulin Lispro [Humalog Kwikpen U-100] 5 unit SQ BREAKFAST & LUNCH 12/11/19 Insulin Lispro [Humalog Kwikpen U-100] 6 unit SQ DAILY AT SUPPER 12/11/19 Trazodone [Desyrel*] 1 tab PO BEDTIME PRN PRN 12/11/19 Valsartan 320 mg PO DAILY 12/11/19 Apixaban [Eliquis] 2.5 mg PO BID #14 tablet 12/13/19 Ascorbic Acid [Vitamin C*] 500 mg PO TID #90 tablet 12/13/19 Cholecalciferol (Vitamin D3) [Vitamin D 1000 Iu Tab*] 3,000 unit PO DAILY #30 tab 12/13/19 predniSONE [Deltasone*] 10 mg PO BID #20 tab 12/13/19 New Medications: predniSONE [Deltasone*] 10 mg PO BID #20 tab Apixaban [Eliquis] 2.5 mg PO BID #14 tablet Ascorbic Acid [Vitamin C*] 500 mg PO TID #90 tablet Cholecalciferol (Vitamin D3) [Vitamin D 1000 Iu Tab*] 3,000 unit PO DAILY #30 tab Patient Discharge Instructions: OK TO DC IV AND DC HOME. FOLLOW-UP WITH PRIMARY CARE PROVIDER IN 1 WEEK. FOLLOW-UP WITH PULMONARY IN 1-2 WEEKS. RETURN TO THE ER IF SYMPTOMS WORSEN. CALL or TEXT DR. SCHWARTZ AT [phone] IF ANY QUESTIONS REGARDING HOSPITAL STAY. PLEASE CALL THE FLOOR AT [phone] IF ANY MEDICATION OR NURSING QUESTIONS. Diet: AHA Activity: Fall precautions Followup: Noel Matamoros MD [Primary Care Provider] -
== END 2019-12-13 13:50 | disposition home or self-care (01) | DRG 177 ==
LOC: ER 16:13 → ERHOLD 20:55 → 3RD-ICU 21:24 → OBSVTOIN 12-12 18:45
PROVIDERS: ADMIT Hospitalist; ATTEND Hospitalist
DX: U07.1 COVID-19 (principal); J12.89 Other viral pneumonia; E87.1 Hypo-osmolality and hyponatremia; E11.9 Type 2 diabetes mellitus without complications; K21.9 Gastro-esophageal reflux disease without esophagitis; E03.9 Hypothyroidism, unspecified; E86.0 Dehydration; I10 Essential (primary) hypertension; A08.4 Viral intestinal infection, unspecified; E78.5 Hyperlipidemia, unspecified; R09.02 Hypoxemia; Z90.49 Acquired absence of other specified parts of digestive tract; Z90.710 Acquired absence of both cervix and uterus; Z79.4 Long term (current) use of insulin; Z79.890 Hormone replacement therapy; Z79.891 Long term (current) use of opiate analgesic; Z79.899 Other long term (current) drug therapy; Z79.52 Long term (current) use of systemic steroids; Z79.01 Long term (current) use of anticoagulants
CPT/HCPCS: 36415; 71045; 74177; 80048; 80076; 82947; 83735; 83880; 84145; 84484; 85025; 85610; 86140; 87040; 87804; 93005; 96361; 96374; 96375; 99285; G0378; J1650; J2920; J3411; J7030; J7040; Q9967; U0003

== ENCOUNTER 2020-03-30 11:08 | Observation (INO) | payer OTHER ==
--- OUTSIDE RECORDS SUMMARY | 2020-03-30 11:10 | XMS REPORT | Continuity of Care Document ---
:1935 Author Organization [facility] t Address [address] [place] [address] Care Team Providers Name Role Phone Unavailable Unavailable Unavailable Payers Payer Name Policy Type Policy Number Effective Date Expiration Date S ource Problems This patient has no known problems. Allergies, Adverse Reactions, Alerts Allergy Allergy Status Severity Reaction(s) Onset Inactive Treating Comm ents Source Name Type Date Date Clinician No Known DA Active U 2017-02 [facility] Allergie -14 Clear s 00:00: Bunn 00 [facility] No Known DA Active U 2010-02 [facility] Allergie - Clear s 00:00: Bunn 00 [facility] Medications This patient has no known medications. Procedures This patient has no known procedures. Results This patient has no known results.
--- NOTE | 2020-03-30 12:18 | RAD REPORT ---
EXAM DESCRIPTION: CT - Ct Stroke Brain Wo Cont - 03/30/2020 12:11 pm CLINICAL HISTORY: WEAKNESS Headache, CVA symptomology COMPARISON: No comparisons TECHNIQUE: All CT scans are performed using dose optimization technique as appropriate and may inclu de automated exposure control or mA/KV adjustment according to patient size. FINDINGS: No intracranial hemorrhage, hydrocephalus or extra-axial fluid collection.No areas of brai n edema or evidence of midline shift. The paranasal sinuses and mastoids are clear. The calvarium is intact. Mild left vertebral atheroscl erosis. IMPRESSION: No acute intracranial abnormality. The findings were discussed with Dr Vasquez in the ER on 03/30/2020 at 12:12 p.m. by telephone.
[2020-03-30 12:44] LABS: Basophils % 0.7 % (0-1.3); Hematocrit 36.9 % (36.0-45.0); Lymphocytes % 24.5 % (15.3-44.8); MPV 8.8 fL (7.6-11.3); RBC Red Blood Cell Count 4.04 M/uL (3.86-4.86)
[2020-03-30 12:53] LABS: Protime INR 0.97
[2020-03-30 12:54] LABS: Potassium 4.5 mmol/L (3.5-5.1)
--- NOTE | 2020-03-30 13:47 | RAD REPORT ---
EXAM DESCRIPTION: Ajith Single View03/30/2020 1:41 pm CLINICAL HISTORY: Chest pain COMPARISON: December 2019 FINDINGS: The lungs appear clear of acute infiltrate. The heart is normal size IMPRESSION: No acute abnormalities displayed
--- NOTE | 2020-03-30 13:56 | ER ---
Nurse's Notes [facility] Name: Rk Ram Age: 84 yrs Sex: Female : 1935 Arrival Date: 03/30/2020 Time: 11:09 Bed 17 Private MD: Diagnosis: Facial Numbness, Weakness, Marked Sinus Bradycardia Presentation: 03/30 11:09 Chief complaint: Pt's daughter "She got up fine this morning and she ate breakfast and aa5 after she said she felt funny". Pt c/o numbness to lips and numbness to whole body. Negative VAN and NIH 0 at this time. Pt's daughter states "they just changed her from insulin to pills about 2 weeks ago". Pt's daughter symptoms began today at 9 am. Pt states "My lips feel swollen". 11:09 Coronavirus screen: Client denies travel out of the [place] in the last 14 days. At this aa5 time, the client does not indicate any symptoms associated with coronavirus-19. Ebola Screen: Patient negative for fever greater than or equal to 101.5 degrees Fahrenheit, and additional compatible Ebola Virus Disease symptoms. No acute neurological deficit is noted. Pre-hospital glucose is not applicable to this patient. Initial Sepsis Screen: Does the patient meet any 2 criteria? No. Patient's initial sepsis screen is negative. Does the patient have a suspected source of infection? No. Patient's initial sepsis screen is negative. Risk Assessment: Do you want to hurt yourself or someone else? Patient reports no desire to harm self or others. Onset of symptoms was March 30, 2020. 11:09 Acuity: BRENT 2 aa5 11:09 Method Of Arrival: Wheelchair aa5 Stroke Activation: Symptom onset < 3 hours Physician: Stroke Attending; Name: ; Notified At: ; Arrived At: Physician: Chief Stroke Resident; Name: ; Notified At: ; Arrived At: Physician: Stroke Resident; Name: ; Notified At: ; Arrived At: Physician: ED Attending; Name: ; Notified At: ; Arrived At: Physician: ED Resident; Name: ; Notified At: ; Arrived At: Historical: - Allergies: 11: No Known Allergies; aa5 - PMHx: : Diabetes - IDDM; GERD; Hyperlipidemia; Hypothyroidism; Osteoporosis; aa5 - PSHx: 11:22 Cholecystectomy; Appendectomy; Hysterectomy; aa5 - Immunization history:: Adult Immunizations unknown. - Social history:: Smoking status: Patient denies any tobacco usage or history of. Screenin:37 Abuse screen: Denies threats or abuse. Nutritional screening: No deficits noted. vg1 Tuberculosis screening: No symptoms or risk factors identified. Fall Risk No fall in past 12 months (0 pts). No secondary diagnosis (0 pts). IV access (20 points). Ambulatory Aid- None/Bed Rest/Nurse Assist (0 pts). Gait- Weak (10 pts.). Mental Status- Oriented to own ability (0 pts). Total Arciniega Fall Scale indicates Low Risk Score (25-44 pts). Fall prevention measures have been instituted. Side Rails Up X 2 Placed close to Nursing Station Family Present and informed to notify staff if they need to leave bedside. Assessment: 12:20 General: Appears in no apparent distress. comfortable, Behavior is calm, cooperative. vg1 Pain: Denies pain. Neuro: Level of Consciousness is awake, alert, obeys commands, Oriented to person, place, time, situation, Automotive Parts Person are equal bilaterally Moves all extremities. Speech is normal, Facial symmetry appears normal. Cardiovascular: Patient's skin is warm and dry. Respiratory: Airway is patent Respiratory effort is even, unlabored, Respiratory pattern is regular, symmetrical. GI: No signs and/or symptoms were reported involving the gastrointestinal system. : No signs and/or symptoms were reported regarding the genitourinary system. EENT: No signs and/or symptoms were reported regarding the EENT system. Derm: Skin is intact, Skin is pink, warm \\T\\ dry. Musculoskeletal: Circulation, motion, and sensation intact. 13:18 The patient is alert, and able to follow commands. The patient does not exhibit slurred vg1 or garbled speech. The patient is not exhibiting difficulty speaking. The patient does not exhibit difficulty understanding words. The patient is able to swallow own secretions with no drooling or need for suction. Patient tolerated one teaspoon of water. No drooling, immediate coughing, gurgling, or clearing of the throat was noted. The patient tolerated 90mL of water. No drooling, immediate coughing, gurgling, or clearing of the throat was noted. The patient passed the bedside swallow screening. Oral medications may be given as ordered. Contact Physician for further diet orders. Provider notified of bedside swallow screening results: Son Vasquez MD. 15:00 Reassessment: Patient appears in no apparent distress at this time. Patient and/or vg1 family updated on plan of care and expected duration. Pain level reassessed. Patient is alert, oriented x 3, equal unlabored respirations, skin warm/dry/pink. 17:29 Reassessment: Ambulated patient, tolerated well. Denied dizziness. Vitals reported to [facility] Dr Joshi. BP 146/54, heart rate was between 59-61, respirations 14 and 98% RA. Patient states feeling better. 20:23 Reassessment: report called to SANJUANA Jo. ll2 Vital Signs: 11:09 BP 152 / 54; Pulse 56; Resp 18 S; Temp 98.5(O); Pulse Ox 99% on R/A; Weight 58.97 kg aa5 (R); 12:38 BP 151 / 59; Pulse 55; Resp 14; Pulse Ox 100% ; vg1 13:00 BP 101 / 71; Pulse 66; Resp 14; Pulse Ox 100% on R/A; vg1 14:00 BP 156 / 61; Pulse 52; Resp 16; Pulse Ox 100% on R/A; vg1 15:00 BP 155 / 53; Pulse 52; Resp 16; Pulse Ox 100% on R/A; vg1 16:00 BP 141 / 49; Pulse 59; Resp 16; Pulse Ox 98% on R/A; vg1 17:20 BP 146 / 54; Pulse 59; Resp 14; Pulse Ox 100% on R/A; vg1 NIH Stroke Scale Scores: 11:09 NIHSS Score: 0 aa5 ED Course: 11:09 Patient arrived in ED. as 11:22 Arm band placed on. aa5 11:25 Triage completed. aa5 11:33 Son Vasquez MD is Attending Physician. kdr 12:08 Noemi Weiss, SANJUANA is Primary Nurse. vg1 12:[address] via wheelchair. vg1 12:10 CT Stroke Brain w/o Contrast In Process Unspecified. EDMS 12:30 Initial lab(s) drawn, by az, sent to lab. Inserted saline lock: 22 gauge in right vg1 forearm, using aseptic technique. Blood collected. 12:53 EKG done, by ED staff, reviewed by Son Vasquez MD. vg1 13:06 Xray at bedside. vg1 13:20 Patient has correct armband on for positive identification. Bed in low position. Call vg1 light in reach. Side rails up X2. Adult w/ patient. 13:41 Stroke CXR 1 View In Process Unspecified. EDMS 13:55 David Huynh MD is Hospitalizing Provider. kdr 20:47 No provider procedures requiring assistance completed. Patient admitted, IV remains in vg1 place. Administered Medications: No medications were administered Point of Care Testing: Blood Glucose: 11:26 Blood Glucose: 236 mg/dL; aa5 Ranges: Outcome: 13:56 Decision to Hospitalize by Provider. kdr 20:47 Admitted to Tele accompanied by tech, via wheelchair, room 207, with chart, Report vg1 called to SANJUANA Jo 20:49 Condition: stable vg1 20:49 Instructed on the need for admit. 20:51 Patient left the ED. vg1 NIH Stroke Scale - NIH Stroke Score Date: 03/30/2020 Time: 11:09 Total Score = 0 1a. Level of Consciousness (LOC) - 0(Alert) 1b. Level of Consciousness (LOC) (Year \\T\\ Age) - 0(Both) 1c. LOC Commands (Open \\T\\ Closes Eyes/Application Design Engineer) - 0(Both) 2. Best Gaze (Lateral Gaze Paresis) - 0(Normal) 3. Visual Field Loss - 0(No visual loss) 4. Facial Palsy - 0(Normal) 5a. Left Arm: Motor (10-second hold) - 0(No drift) 5b. Right Arm: Motor (10-second hold) - 0(No drift) 6a. Left Leg: Motor (5-second hold - always test supine) - 0(No drift) 6b. Right Leg: Motor (5-second hold - always test supine) - 0(No drift) 7. Limb Ataxia (finger/nose \\T\\ heel/vo - test with eyes open) - 0(Absent) 8. Sensory Loss (pinprick arms/legs/face) - 0(Normal) 9. Best Language: Aphasia (description/naming/reading) - 0(No aphasia) 10. Dysarthria (speech clarity - read or repeat words) - 0(Normal) 11. Extinction and Inattention (visual/tactile/auditory/spatial/personal) - 0(No abnormality) Initials: aa5 Signatures: Dispatcher [employer] EDSon Vazquez MD MD kdr Martinez, Amelia as Calderon, Audri, RN RN aa5 Leatha Mcdonough, RN RN ll2 Noemi Weiss, RN RN vg1 Corrections: (The following items were deleted from the chart) 11:26 11:09 Chief complaint: Pt's daughter "She got up fine this morning and she ate aa5 breakfast and after she said she felt funny". Pt c/o numbness to lips and numbness to whole body. Negative VAN and NIH 0 at this time. Pt's daughter states "they just changed her from insulin to pills about 2 weeks ago". Pt's daughter symptoms began today at 9 am. aa5 17:31 17:29 Reassessment: Ambulated patient, tolerated well. Denied dizziness. Vitals vg1 reported to Dr Joshi. BP 146/54, heart rate was between 59-61, respirations 14 and 98% RA. vg1 20:51 20:47 Admitted to Tele accompanied by [facility], via wheelchair, room 207, with vg1 chart, vg1
--- NOTE | 2020-03-30 13:56 | EDPHYS ---
Physician Documentation [facility] Name: Rk Ram Age: 84 yrs Sex: Female : 1935 Arrival Date: 03/30/2020 Time: 11:09 Bed 17 Private MD: ED Physician Sno Vasquez HPI: 03/30 14:55 This 84 yrs old Female presents to ER via Wheelchair with complaints of kdr Numbness Of Lips, Weakness. 14:57 The patient awoke this morning feeling her normal self and had breakfast. about 9:00 kdr AM, she noted that she did not feel right. Stated that her face felt different and swollen. She also felt her lips were swollen.. Daughter relates that she has been under a lot of stress lately since family had been moved in with her and they were not all getting along well. yesterday, there had been a large argument which caused her additional stress. Onset: The symptoms/episode began/occurred suddenly, this morning, at 09:00. Severity of symptoms: At their worst the symptoms were mild in the emergency department the symptoms have improved mildly. The patient has not experienced similar symptoms in the past. The patient has not recently seen a physician. Historical: - Allergies: 11:22 No Known Allergies; aa5 - PMHx: 11:22 Diabetes - IDDM; GERD; Hyperlipidemia; Hypothyroidism; Osteoporosis; aa5 - PSHx: 11:22 Cholecystectomy; Appendectomy; Hysterectomy; aa5 - Immunization history:: Adult Immunizations unknown. - Social history:: Smoking status: Patient denies any tobacco usage or history of. ROS: 14:57 Constitutional: Negative for fever, chills, and weight loss, Eyes: Negative for injury, kdr pain, redness, and discharge, ENT: Negative for injury, pain, and discharge, Neck: Negative for injury, pain, and swelling, Cardiovascular: Negative for chest pain, palpitations, and edema, Respiratory: Negative for shortness of breath, cough, wheezing, and pleuritic chest pain, Abdomen/GI: Negative for abdominal pain, nausea, vomiting, diarrhea, and constipation, Back: Negative for injury and pain, : Negative for injury, bleeding, discharge, and swelling, MS/Extremity: Negative for injury and deformity, Skin: Negative for injury, rash, and discoloration, Psych: Negative for depression, anxiety, suicide ideation, homicidal ideation, and hallucinations, Allergy/Immunology: Negative for hives, rash, and allergies, Endocrine: Negative for neck swelling, polydipsia, polyuria, polyphagia, and marked weight changes, Hematologic/Lymphatic: Negative for swollen nodes, abnormal bleeding, and unusual bruising. 14:57 Neuro: Positive for weakness, Change in sensation in her face, Negative for altered mental status, dizziness, gait disturbance, headache, hearing loss, loss of consciousness, seizure activity, speech changes, syncope, near syncope, tingling. Exam: 13:07 ECG was reviewed by the Attending Physician. kdr 14:57 Constitutional: This is a well developed, well nourished patient who is awake, alert, kdr and in no acute distress. Head/Face: Normocephalic, atraumatic. Eyes: Pupils equal round and reactive to light, extra-ocular motions intact. Lids and lashes normal. Conjunctiva and sclera are non-icteric and not injected. Cornea within normal limits. Periorbital areas with no swelling, redness, or edema. Neck: Trachea midline, no thyromegaly or masses palpated, and no cervical lymphadenopathy. Supple, full range of motion without nuchal rigidity, or vertebral point tenderness. No Meningismus. Chest/axilla: Normal chest wall appearance and motion. Nontender with no deformity. No lesions are appreciated. Respiratory: Lungs have equal breath sounds bilaterally, clear to auscultation and percussion. No rales, rhonchi or wheezes noted. No increased work of breathing, no retractions or nasal flaring. Abdomen/GI: Soft, non-tender, with normal bowel sounds. No distension or tympany. No guarding or rebound. No evidence of tenderness throughout. Back: No spinal tenderness. No costovertebral tenderness. Full range of motion. Skin: Warm, dry with normal turgor. Normal color with no rashes, no lesions, and no evidence of cellulitis. MS/ Extremity: Pulses equal, no cyanosis. Neurovascular intact. Full, normal range of motion. Neuro: Awake and alert, GCS 15, oriented to person, place, time, and situation. Cranial nerves II-XII grossly intact. Motor strength 5/5 in all extremities. Sensory grossly intact. Cerebellar exam normal. Normal gait. Psych: Awake, alert, with orientation to person, place and time. Behavior, mood, and affect are within normal limits. 14:57 Cardiovascular: Rate: bradycardic, actual rate is 49 bpm, Rhythm: irregular, Pulses: no pulse deficits are appreciated, Heart sounds: normal, Edema: is not appreciated. Vital Signs: 11:09 BP 152 / 54; Pulse 56; Resp 18 S; Temp 98.5(O); Pulse Ox 99% on R/A; Weight 58.97 kg aa5 (R); 12:38 BP 151 / 59; Pulse 55; Resp 14; Pulse Ox 100% ; vg1 13:00 BP 101 / 71; Pulse 66; Resp 14; Pulse Ox 100% on R/A; vg1 14:00 BP 156 / 61; Pulse 52; Resp 16; Pulse Ox 100% on R/A; vg1 15:00 BP 155 / 53; Pulse 52; Resp 16; Pulse Ox 100% on R/A; vg1 16:00 BP 141 / 49; Pulse 59; Resp 16; Pulse Ox 98% on R/A; vg1 17:20 BP 146 / 54; Pulse 59; Resp 14; Pulse Ox 100% on R/A; vg1 NIH Stroke Scale Scores: 11:09 NIHSS Score: 0 aa5 MDM: 13:56 Patient medically screened. kdr 14:57 Data reviewed: vital signs, nurses notes, lab test result(s), radiologic studies. kdr Medical screen evaluation completed. EMTALA emergency medical condition absent. 15:47 Counseling: I had a detailed discussion with the patient and/or guardian regarding: the kdr historical points, exam findings, and any diagnostic results supporting the discharge/admit diagnosis, lab results, radiology results. Physician consultation: Hong Laura MD regarding consult, patient's condition, need to evaluate the patient as soon as possible, and will see patient in inpatient room, later today, Sent EKG to him. 03/30 11:33 Order name: Glucose, Ancillary Testing; Complete Time: 13:45 EDMS 03/30 11:56 Order name: Basic Metabolic Panel; Complete Time: 13:45 kdr 03/30 11:56 Order name: CBC with Diff; Complete Time: 13:45 kdr 03/30 11:56 Order name: Protime (+inr); Complete Time: 13:45 kdr 03/30 11:56 Order name: Ptt, Activated; Complete Time: 13:45 kdr 03/30 14:38 Order name: Basic Metabolic Panel EDMS 03/30 14:38 Order name: Basic Metabolic Panel EDMS 03/30 14:38 Order name: CKMB Creatine Kinase MB EDMS 03/30 14:38 Order name: CKMB Creatine Kinase MB EDMS 03/30 14:38 Order name: CKMB Creatine Kinase MB EDMS 03/30 14:38 Order name: CKMB Creatine Kinase MB EDMS 03/30 14:38 Order name: Creatine Phosphokinase EDMS 03/30 14:38 Order name: Creatine Phosphokinase EDMS 03/30 14:38 Order name: Creatine Phosphokinase EDMS 03/30 14:38 Order name: Creatine Phosphokinase EDMS 03/30 14:38 Order name: Lipid Profile EDMS 03/30 14:38 Order name: Lipid Profile EDMS 03/30 14:38 Order name: Magnesium EDMS 03/30 14:38 Order name: Magnesium EDMS 03/30 14:39 Order name: Phosphorus EDMS 03/30 14:39 Order name: Phosphorus EDMS 03/30 14:39 Order name: T4 Free EDMS 03/30 14:39 Order name: Thyroid Stimulating Hormone EDMS 03/30 14:39 Order name: Urinalysis EDMS 03/30 14:39 Order name: CBC with Automated Diff EDMS 03/30 14:39 Order name: CBC with Automated Diff EDMS 03/30 14:39 Order name: Troponin I EDMS 03/30 14:39 Order name: Troponin I EDMS 03/30 14:39 Order name: Troponin I EDMS 03/30 14:39 Order name: Troponin I [facility] 03/30 11:56 Order name: CT Stroke Brain w/o Contrast; Complete Time: 13:45 [facility] 03/30 11:56 Order name: Stroke CXR 1 View; Complete Time: 13:53 [facility] 03/30 11:56 Order name: EKG; Complete Time: 11:57 kdr 03/30 11:56 Order name: Accucheck; Complete Time: 12:38 [facility] 03/30 11:56 Order name: Cardiac monitoring; Complete Time: 12:53 [facility] 03/30 11:56 Order name: EKG - Nurse/Tech; Complete Time: 12:53 [facility] 03/30 11:56 Order name: IV Saline Lock; Complete Time: 12:35 [facility] 03/30 11:56 Order name: Labs collected and sent; Complete Time: 12:34 kdr 03/30 11:56 Order name: NPO; Complete Time: 12:34 kdr 03/30 11:56 Order name: O2 Per Protocol; Complete Time: 12:34 kdr 03/30 11:56 Order name: O2 Sat Monitoring; Complete Time: 12:34 kdr 03/30 11:56 Order name: Stroke Swallow Screen; Complete Time: 12:56 kdr 03/30 14:13 Order name: Misc. Order: Ambulate patinet and record VS changes; Complete Time: 17:25 kdr 03/30 14:34 Order name: Diet Ada 1800 Stephon; Complete Time: 14:34 vg1 03/30 17:58 Order name: COVID-19 : Document "Date of Symptom Onset" if Symptomatic. eb 03/30 18:49 Order name: CORONAVIRUS EDMS 03/30 19:10 Order name: Glucose, Ancillary Testing EDMS 03/30 19:44 Order name: SARS-COV-2 RT PCR EDMS EC:07 Rate is 49 beats/min. Rhythm is irregular, Sinus bradycardia with Unifocal PVCs. QRS kdr [place] is Normal. VT interval is normal. QRS interval is normal. QT interval is normal. Clinical impression: Sinus bradycardia. Administered Medications: No medications were administered Point of Care Testing: Blood Glucose: 11:26 Blood Glucose: 236 mg/dL; aa5 Ranges: Critical Glucose Levels:Adult <50 mg/dl or >400 mg/dl <40 mg/dl or >180 mg/dl Disposition: 03/30/20 13:56 Hospitalization ordered by David Huynh for Observation. Preliminary diagnosis is Facial Numbness, Weakness, Marked Sinus Bradycardia. - Bed requested for Telemetry/MedSurg (observation). - Status is Observation. vg1 - Condition is Fair. - Problem is new. - Symptoms have improved. NIH Stroke Scale - NIH Stroke Score Date: 03/30/2020 Time: 11:09 Total Score = 0 1a. Level of Consciousness (LOC) - 0(Alert) 1b. Level of Consciousness (LOC) (Year \\T\\ Age) - 0(Both) 1c. LOC Commands (Open \\T\\ Closes Eyes/Regulatory And Compliance Technician) - 0(Both) 2. Best Gaze (Lateral Gaze Paresis) - 0(Normal) 3. Visual Field Loss - 0(No visual loss) 4. Facial Palsy - 0(Normal) 5a. Left Arm: Motor (10-second hold) - 0(No drift) 5b. Right Arm: Motor (10-second hold) - 0(No drift) 6a. Left Leg: Motor (5-second hold - always test supine) - 0(No drift) 6b. Right Leg: Motor (5-second hold - always test supine) - 0(No drift) 7. Limb Ataxia (finger/nose \\T\\ heel/vo - test with eyes open) - 0(Absent) 8. Sensory Loss (pinprick arms/legs/face) - 0(Normal) 9. Best Language: Aphasia (description/naming/reading) - 0(No aphasia) 10. Dysarthria (speech clarity - read or repeat words) - 0(Normal) 11. Extinction and Inattention (visual/tactile/auditory/spatial/personal) - 0(No abnormality) Initials: aa5 Signatures: Dispatcher [employer] EDMS Son Vasquez MD MD [facility] Vanessa Willis RN RN aa5 Sera Weiss RN RN Noemi Weiss RN RN vg1 Corrections: (The following items were deleted from the chart) 20:13 13:56 Hospitalization Ordered by David Huynh MD for Observation. Preliminary cg diagnosis is Facial Numbness, Weakness, Marked Sinus Bradycardia. Bed requested for Telemetry/MedSurg (observation). Status is Observation. Condition is Fair. Problem is new. Symptoms have improved. kdr 20:51 20:13 03/30/2020 13:56 Hospitalization Ordered by David Huynh MD for vg1 Observation. Preliminary diagnosis is Facial Numbness, Weakness, Marked Sinus Bradycardia. Bed requested for Telemetry/MedSurg (observation). Status is Observation. Condition is Fair. Problem is new. Symptoms have improved. cg
[2020-03-30] MEDS ORDERED: ONDANSETRON 4 MG/2 ML VIAL IV PRN (14:34)
[2020-03-30] MEDS ORDERED: ACETAMINOPHEN 500 MG TAB PO PRN (14:34)
[2020-03-30] MEDS ORDERED: TRAZODONE 50 MG TABLET PO PRN (14:38)
--- NOTE | 2020-03-30 14:51 | P.HP ---
Certification for Inpatient With expected LOS: <2 Midnights Patient will require the following post-hospital care: None Practitioner: I am a practitioner with admitting privileges, knowledge of patient current condition, hospital course, and medical plan of care. Services: Services provided to patient in accordance with Admission requirements found in Title 42 Section 412.3 of the Code of Federal Regulations Patient History Date of Service: 03/30/20 Reason for admission: Dizziness, bradycardia. History of Present Illness: 84 y o female pt with DM type 2, Hypertension, Hyperlipidemia, Hypothyroidism admitted for work up of bradycardia and dizziness. Family reported that she started feeling dizzy and lightheaded for a while. No report of chest pain, cough, sob, leg swelling or fever. She was noted to have heart rate of 40-50s on routine monitoring. Lab did not reveal any electrolyte abnormalities. her EKG showed sinus bradycardia. CT head showed no acute intracranial abnormality. she was asked to be admitted for work up. Allergies No Known Allergies Allergy (Verified 12/11/19 23:39) Home Medications: Amlodipine [Norvasc*] 5 mg PO DAILY 02/05/18 Calcium Carbonate/Vitamin D3 [Calcium 500-Vit D3 400 Tablet] 1 tab PO DAILY 02/05/18 Insulin Glargine,Hum.rec.anlog [Toujeo Solostar] 26 unit SQ DAILY WITH BREAKFAST 02/05/18 Labetalol HCl [Trandate] 200 mg PO BID 02/05/18 Levothyroxine Sodium 50 mcg PO [id number] 02/05/18 Mirtazapine 15 mg PO BEDTIME 02/05/18 Pantoprazole [Protonix Tab*] 40 mg PO DAILY 02/05/18 Rosuvastatin [Crestor*] 20 mg PO DAILY 02/05/18 Spironolactone 25 mg PO DAILY 02/05/18 Alendronate Sodium 1 tab PO EVERY 7TH DAY 12/11/19 Cholestyramine (with Sugar) [Questran Packet] 4 g PO BID 12/11/19 Dicyclomine [Bentyl*] 10 mg PO BID 12/11/19 Diphenox/Atropine [Lomotil*] 1 tab PO QIDP PRN 12/11/19 Ergocalciferol (Vitamin D2) [Vitamin D 50,000 Unit Cap] 50,000 unit PO EVERY 7TH DAY 12/11/19 Insulin Lispro [Humalog Kwikpen U-100] 5 unit SQ BREAKFAST & LUNCH 12/11/19 Insulin Lispro [Humalog Kwikpen U-100] 6 unit SQ DAILY AT SUPPER 12/11/19 Trazodone [Desyrel*] 1 tab PO BEDTIME PRN PRN 12/11/19 Valsartan 320 mg PO DAILY 12/11/19 Apixaban [Eliquis] 2.5 mg PO BID #14 tablet 12/13/19 Ascorbic Acid [Vitamin C*] 500 mg PO TID #90 tablet 12/13/19 Cholecalciferol (Vitamin D3) [Vitamin D 1000 Iu Tab*] 3,000 unit PO DAILY #30 tab 12/13/19 predniSONE [Deltasone*] 10 mg PO BID #20 tab 12/13/19 - Past Medical/Surgical History Diabetic: Yes -: Diabetes mellitus type 2 -: Hypertension -: Hyperlipidemia -: Hypothyroidism -: Knee Surgery 12/27 -: Hysterectomy -: Appendectomy Psychosocial/ Personal History: Patient lives the . - Social History Alcohol use: No CD- Drugs: No Caffeine use: No Review of Systems General: Weakness Eyes: Unremarkable ENT: Unremarkable Respiratory: Unremarkable Cardiovascular: Light Headedness Gastrointestinal: Unremarkable Musculoskeletal: Unremarkable Integumentary: Unremarkable Neurological: Unremarkable Physical Examination - Physical Exam General: Alert, Oriented x3 HEENT: Atraumatic, Normocephalic Neck: Supple Respiratory: Clear to auscultation bilaterally Cardiovascular: Regular rate/rhythm, Normal S1 S2 Gastrointestinal: Soft and benign Neurological: Normal speech, Normal strength at 5/5 x4 extr, Cranial nerves 3-12 intact - Studies Laboratory Data (last 24 hrs) 03/30/20 12:31: PT 11.2, INR 0.97, APTT 26.4 03/30/20 12:31: WBC 8.30, Hgb 12.4, Hct 36.9, Plt Count 235 03/30/20 12:31: Sodium 134 L, Potassium 4.5, BUN 16, Creatinine 1.00, Glucose 179 H Assessment and Plan - Plan 1.Bradycardia-Her heart rate has been 40-50s since admission. we will hold labetalol doses and monitor. we will continue telemetry and have cardiology evaluate her. we will have on prn atropine for bradycardia management. 2.Hypertension- we will monitor vitals and hold antihypertensive meds for now. 3.Diabetes type 2- we will continue insulin therapy and carb restricted diet. 4.Hypothyroidism- We will continue levothyroxine. 5.Hyperlipidemia- we will continue statin therapy. - Advance Directives Does patient have a Living Will: No Does patient have a Durable POA for Healthcare: No
[2020-03-30] MEDS ORDERED: NA CHLORIDE 0.9% 1,000 ML IV SCH (15:00)
[2020-03-30 15:27] LABS: CKMB Creatine Kinase MB 2.7 ng/mL (0.3-3.6); Creatine Phosphokinase 237 U/L (26-192); Troponin I < 0.02 ng/mL (0.0-0.045)
[2020-03-30 15:48] LABS: Thyroid Stimulating Hormone 0.178 uIU/mL (0.360-3.740)
[2020-03-30] MEDS: INSULIN -REGULAR HUMAN 50 UNIT/0.5 ML ML SQ SCH ×2 (18:50→22:41)
[2020-03-30] MEDS ORDERED: NA CHLORIDE 0.9% 1,000 ML ONE (19:09)
[2020-03-30] MEDS ORDERED: INSULIN -REGULAR HUMAN 50 UNIT/0.5 ML ML ONE (19:20)
[2020-03-30] MEDS ORDERED: APIXABAN 2.5 MG TABLET PO SCH (21:00)
[2020-03-30] MEDS ORDERED: MIRTAZAPINE 15 MG TAB PO SCH (21:00)
[2020-03-30] MEDS: DICYCLOMINE HCL 10 MG CAP PO SCH (22:41)
[2020-03-30 23:42] LABS: CKMB Creatine Kinase MB 1.6 ng/mL (0.3-3.6); Creatine Phosphokinase 167 U/L (26-192); Troponin I < 0.02 ng/mL (0.0-0.045)
[2020-03-31 03:06] VITALS: BMI 23.8
[2020-03-31 03:44] LABS: Urine Appearance CLEAR; Urine Bilirubin NEGATIVE (NEG); Urine Blood NEGATIVE (NEG); Urine Color YELLOW; Urine Glucose 3+ (NEG); Urine Protein NEGATIVE (NEG); Urine Urobilinogen 0.2 mg/dL (0.2-1.0); Urine pH 6.5 (5.0-7.0)
[2020-03-31 03:50] LABS: Urine Microscopic Reflex ORDER UMIC
[2020-03-31 04:14] LABS: Urine Bacteria LOADED /HPF (<20); Urine Mucus 1+ /HPF (NONE SEEN); Urine RBC <5 /HPF (NONE SEEN)
[2020-03-31] MEDS ORDERED: LEVOTHYROXINE SOD 0.05 MG TABLET PO SCH (06:00)
[2020-03-31 06:23] LABS: Absolute Lymphocytes (CBC) 2.6 K/uL (0.7-4.9); Basophils % 0.4 % (0-1.3); Hematocrit 34.3 % (36.0-45.0); Lymphocytes % 31.6 % (15.3-44.8); MPV 8.7 fL (7.6-11.3); RBC Red Blood Cell Count 3.83 M/uL (3.86-4.86)
[2020-03-31 07:10] LABS: Magnesium 2.4 mg/dL (1.8-2.4); Phosphorus 4.3 mg/dL (2.5-4.9); Potassium 4.1 mmol/L (3.5-5.1)
[2020-03-31 07:17] LABS: CKMB Creatine Kinase MB 1.2 ng/mL (0.3-3.6); Creatine Phosphokinase 149 U/L (26-192); Troponin I < 0.02 ng/mL (0.0-0.045)
[2020-03-31] MEDS: INSULIN -REGULAR HUMAN 50 UNIT/0.5 ML ML SQ SCH (07:30)
[2020-03-31] MEDS ORDERED: INSULIN GLARGINE 100 UNITS/ML SQ SCH (08:00)
[2020-03-31] MEDS ORDERED: HOME MED 1 EA UNK (Insulin Glargine,Hum.Rec.Anlog [Toujeo Solostar] 300 UNIT/ML Insuln.Pen SQ SCH (08:00)
--- NOTE | 2020-03-31 08:38 | P.DS ---
Admission Date: 03/30/20 Discharge Date: 03/31/20 Primary Care Provider: Dr. Oropeza([place], [place]) Disposition: ROUTINE DISCHARGE Discharge Condition: GOOD Reason for Admission: Dizziness, bradycardia. Consultations: none Procedures: COVID: Negative CXR: FINDINGS: The lungs appear clear of acute infiltrate. The heart is normal size IMPRESSION: No acute abnormalities displayed CT Head: FINDINGS: No intracranial hemorrhage, hydrocephalus or extra-axial fluid collection.No areas of brain edema or evidence of midline shift. The paranasal sinuses and mastoids are clear. The calvarium is intact. Mild left vertebral atherosclerosis. IMPRESSION: No acute intracranial abnormality. Medical Problem List: Dizziness with noted bradycardia secondary to medication Hypertension Diabetes mellitus type 2 Hypothyroidism Hyperlipidemia Asymptomatic dysuria Brief History of Present Illness: 84-year-old female with diabetes, hypertension, hyperlipidemia and hypothyroidism presented with dizziness. Patient found to have bradycardia. Patient takes labetalol. This was discontinued. Patient admitted for further evaluation and monitoring. Hospital Course: Patient presented with dizziness. Patient found to have bradycardia. This is likely related to her medication. Patient takes labetalol. This was discontinued. Patient has also had other medication discontinued-Norvasc due to edema. Patient takes other medications. Patient was admitted for further monitoring and evaluation. CT head unremarkable. Chest x-ray unremarkable. COVID test negative. Patient has done well Overnite. Bradycardia has resolved. At discharge will recommend to discontinue labetalol. Recommend to monitor blood pressure and heart rate daily. Patient with underlying hypertension. Medications verified from home. At discharge she will continue with her other medication-valsartan 320 mg daily and Aldactone 25 mg daily. Recommend to maintain blood pressure less than 130/80. Recommend heart rate between 50 and 100. Any deviation of vitals should be reported to PCP for further recommendation. Hold blood pressure medication if systolic less than 110. Recommend follow up with her PCP or cardiology within 1 week to further monitor and adjust medication. Patient with diabetes mellitus type 2 insulin dependent. At discharge she will continue with her insulin regimen-Toujeo 10 units daily. Patient also takes regular insulin. Will recommend to discontinue for Farxiga due to increase risk for UTI.. Recommend to maintain blood sugar less than 140 fasting and less than 200 after meals. Further adjustment can be done by her PCP. Patient with hypothyroidism. At discharge patient will continue with her medication levothyroxine 50 mcg daily. Follow up with PCP to further monitor and adjust. Patient with hyperlipidemia. At discharge patient will continue with Crestor 20 mg daily. Patient with GERD. At discharge she will continue with Protonix 40 mg daily. Patient with asymptomatic dysuria. No fever noted. White count normal. Patient without symptoms. Will recommend to discontinue Farxiga as mentioned above. Vital Signs/Physical Exam: Temp Pulse Resp BP Pulse Ox 97.3 F 83 18 112/59 L 96 03/31/20 04:00 03/31/20 04:00 03/31/20 04:00 03/31/20 04:00 03/31/20 04:00 General: Alert, In no apparent distress, Oriented x3, Cooperative HEENT: Atraumatic Neck: Supple Respiratory: Clear to auscultation bilaterally, Normal air movement Cardiovascular: Normal pulses, Regular rate/rhythm Gastrointestinal: Normal bowel sounds, Soft and benign, Non-distended, No tenderness, No masses, No rebound, No guarding Neurological: Normal speech, Normal strength at 5/5 x4 extr, Normal tone, Normal affect Laboratory Data at Discharge: WBC 8.20 K/uL (4.3-10.9) 03/31/20 05:56 Hgb 12.0 g/dL (12.0-15.0) 03/31/20 05:56 Hct 34.3 % (36.0-45.0) L 03/31/20 05:56 Plt Count 206 K/uL (152-406) 03/31/20 05:56 PT 11.2 SECONDS (9.5-12.5) 03/30/20 12:31 INR 0.97 03/30/20 12:31 APTT 26.4 SECONDS (24.3-36.9) 03/30/20 12:31 Sodium 143 mmol/L (136-145) 03/31/20 05:56 Potassium 4.1 mmol/L (3.5-5.1) 03/31/20 05:56 BUN 14 mg/dL (7-18) 03/31/20 05:56 Creatinine 0.84 mg/dL (0.55-1.3) 03/31/20 05:56 Glucose 133 mg/dL (74-106) H 03/31/20 05:56 Phosphorus 4.3 mg/dL (2.5-4.9) 03/31/20 05:56 Magnesium 2.4 mg/dL (1.8-2.4) 03/31/20 05:56 Troponin I < 0.02 ng/mL (0.0-0.045) 03/31/20 05:56 Triglycerides 169 mg/dL (<150) H 03/31/20 05:56 Cholesterol 146 mg/dL (<200) 03/31/20 05:56 HDL Cholesterol 60 mg/dL (40-60) 03/31/20 05:56 Cholesterol/HDL Ratio 2.43 03/31/20 05:56 Home Medications: Levothyroxine [Synthroid*] 50 mcg PO [id number] 03/31/20 Mirtazapine [Remeron*] 15 mg PO BEDTIME 03/31/20 Pantoprazole [Protonix Tab*] 1 tab PO DAILY 03/31/20 Rosuvastatin Calcium [Crestor] 1 tab PO DAILY 03/31/20 Spironolactone [Aldactone*] 1 tab PO DAILY 03/31/20 Valsartan [Diovan] 1 tab PO DAILY 03/31/20 Physician Discharge Instructions: Patient presented with dizziness. Patient found to have bradycardia. This is likely related to her medication. Patient takes labetalol. This was di scontinued. Patient has also had other medication discontinued-Norvasc due to edema. Patient takes other medications. Patient was admitted for further monitoring and evaluation. CT head unremarkable. Chest x-ray unremarkable. COVID test negative. Patient has done well Overnite. Bradycardia has resolved. At discharge will recommend to discontinue labetalol. Recommend to monitor blood pressure and heart rate daily. Patient with underlying hypertension. Medications verified from home. At discharge she will continue with her other medication-valsartan 320 mg daily and Aldactone 25 mg daily. Recommend to maintain blood pressure less than 130/80. Recommend heart rate between 50 and 100. Any deviation of vitals should be reported to PCP for further recommendation. Hold blood pressure medication if systolic less than 110. Recommend follow up with her PCP or cardiology within 1 week to further monitor and adjust medication. Patient with diabetes mellitus type 2 insulin dependent. At discharge she will continue with her insulin regimen-Toujeo 10 units daily. Patient also takes regular insulin. Will recommend to discontinue for Farxiga due to increase risk for UTI.. Recommend to maintain blood sugar less than 140 fasting and less than 200 after meals. Further adjustment can be done by her PCP. Patient with hypothyroidism. At discharge patient will continue with her m edication levothyroxine 50 mcg daily. Follow up with PCP to further monitor and adjust. Patient with hyperlipidemia. At discharge patient will continue with Crestor 20 mg daily. Patient with GERD. At discharge she will continue with Protonix 40 mg daily. Patient with asymptomatic dysuria. No fever noted. White count normal. Patient without symptoms. Will recommend to discontinue Farxiga as mentioned above. Diet: ADA Activity: Fall precautions Followup: OOT,OOT [Primary Care Provider] - Time spent managing pt's care (in minutes): 55
[2020-03-31] MEDS: DICYCLOMINE HCL 10 MG CAP PO SCH (09:00)
[2020-03-31] MEDS ORDERED: PANTOPRAZOLE 40MG TABLET PO SCH (09:00)
[2020-03-31] MEDS ORDERED: ROSUVASTATIN 10 MG TAB PO SCH (09:00)
[2020-03-31] MEDS ORDERED: ENOXAPARIN 40 MG/0.4 ML SQ SCH (09:00)
[2020-03-31] MEDS ORDERED: SPIRONOLACTONE 25 MG TABLET PO SCH (09:00)
[2020-03-31 10:04] VITALS: O2SAT 96
[2020-03-31 14:19] VITALS: BP 136/63; TEMP 97.6
[2020-04-06] MEDS ORDERED: ALENDRONATE 70 MG TAB PO SCH (09:00)
== END 2020-03-31 12:32 | disposition home or self-care (01) ==
LOC: ER 11:08 → ERHOLD 14:34 → 2ND 20:15
PROVIDERS: ADMIT Internal Medicine Nephrology; ATTEND Family Medicine
DX: R00.1 Bradycardia, unspecified (principal); T44.8X5A Adverse effect of centrally-acting and adrenergic-neuron-blocking agents, initial encounter; I10 Essential (primary) hypertension; E11.9 Type 2 diabetes mellitus without complications; E03.9 Hypothyroidism, unspecified; E78.5 Hyperlipidemia, unspecified; R30.0 Dysuria; R20.0 Anesthesia of skin; R53.1 Weakness; K21.9 Gastro-esophageal reflux disease without esophagitis; M81.0 Age-related osteoporosis without current pathological fracture; Z20.822 Contact with and (suspected) exposure to COVID-19; Z79.4 Long term (current) use of insulin; Z90.710 Acquired absence of both cervix and uterus; Z90.49 Acquired absence of other specified parts of digestive tract
CPT/HCPCS: 93005; 87088; 85025 ×2; 87086; 80048 ×2; 36415 ×2; 83735; 82550 ×3; 84100; 85610; 80061; 82947 ×5; 85730; 84443; 87077; 87186; 84484 ×3; 82553 ×3; 84439; 70450; 71045; 99285; U0003; J7030; G0378 ×3; 81003; 81015; J1815